=== PATIENT | female | born 1985 | race Caucasian/White ===

== ENCOUNTER 2020-05-21 14:17 | Emergency (ER) | payer OTHER, SELFPAY ==
[2020-05-21] VITALS (10 sets, daily range): BP systolic 113–151; BP diastolic 79–89; PULSE 87–108; RESP 14–24; O2SAT 89–100; BMI 20.2
--- NOTE | 2020-05-21 14:38 | DI.RAD.S_ITS ---
PROCEDURE: XR CHEST 2V INDICATIONS: PALPITATIONS TECHNIQUE: 2 views of the chest were acquired. COMPARISON: None. FINDINGS: Surgical changes and devices: None. Lungs and pleura: Lungs are clear. No pleural effusions or pneumothorax. Mediastinum: Mediastinal contours are normal. Heart size is normal. Bones and chest wall: No suspicious bony abnormalities. Soft tissues appear unremarkable. IMPRESSION: No acute disease. Dictated by: Trevon Loya M.D. on 05/21/2020 at 14:58 Approved by: Trevon Loya M.D. on 05/21/2020 at 14:59
[2020-05-21 14:53] LABS: Add Manual Diff / Slide Review NO; Basophils Absolute Auto 100 /uL (0-100); Basophils Percent Auto 0.7 % (0-2); Eosinophils Absolute Auto 100 /uL (0-450); Eosinophils Percent Auto 1.6 % (2-4); Hemoglobin 13.9 g/dL (12.0-16.0); Lymphocytes Absolute Auto 2100 /uL (1100-4500); Lymphocytes Percent Auto 25.7 % (25-40); Mean Corpuscular HGB Conc 33.1 % (30-36); Mean Corpuscular Hemoglobin 28.6 PG (26-34); Mean Corpuscular Volume 86.5 fL (80-100); Monocytes Absolute Auto 600 /uL (0-900); Monocytes Percent Auto 7.3 % (3-14); Neutrophils Absolute Auto 5400 /uL (1500-7000); Neutrophils Percent Auto 64.7 % (50-75); Platelet Count 264 X10^3/uL (150-400); Red Blood Cell Count 4.85 X10^6/uL (4.0-5.2); Red Cell Distribution Width 12.8 % (11.6-14.8); White Blood Cell Count 8.3 X10^3/uL (4.5-11.0)
[2020-05-21 15:19] LABS: Alanine Aminotransferase 26 IU/L (<35); Albumin 4.5 g/dL (3.5-5.0); Albumin Globulin Ratio 1.6 (1.0-2.8); Alkaline Phosphatase 43 U/L (38-126); Aspartate Aminotransferase 32 IU/L (14-36); BUN Creatinine Ratio 23.8 (6-22); Bilirubin Total 0.4 mg/dL (0.2-1.3); Blood Urea Nitrogen 15 mg/dL (7-17); Calcium 9.7 mg/dL (8.4-10.2); Carbon Dioxide 31 mmol/L (22-32); Chloride 102 mmol/L (98-107); Estimated Glomerular Filt Rate > 60.0 mL/min (>60); Globulin 2.9 g/dL (1.7-4.1); Glucose 83 mg/dL (70-100); HEMOLYSIS < 15 (0-50); Potassium 4.3 mmol/L (3.4-5.1); Sodium 138 mmol/L (137-145); Total Protein 7.4 g/dL (6.3-8.2)
[2020-05-21 15:30] LABS: Troponin I < 0.012 ng/mL (0.01-0.034)
[2020-05-21 15:54] LABS: TSH w/ Reflex to FT4 2.37 uIU/mL (0.47-4.68)
--- NOTE | 2020-05-21 18:37 | ED_ITS ---
HPI - Headache General Chief Complaint: Arrhythmia/Palpitations Stated Complaint: heart rate too fast,neck is going to explode,verti Time Seen by Provider: 05/21/20 18:09 Source: patient and family Mode of arrival: Ambulatory Limitations: no limitations History of Present Illness HPI Narrative: Patient here with . Complains 3 days of constant generalize bilateral retro-orbital headache radiating to the neck bilaterally. Has had nausea. No vomiting. Has had dizziness as well. No syncope. No numbness or tingling. No chest pain. Headache causes her to feel palpitations. Feels pulsating effect on the neck as well as in the ears. Childhood history of POTS but patient states does not feel like this. History of migraines but this is not feel like her typical migraines. Rates headache 7 at 10 is constant. At times worse with laying flat. No light or sound sensitivity. No recent illness fever chills cough cold congestion sore throat. Denies any chest pain back pain or dyspnea MD Complaint: headache Related Data Previous Rx's Medication Instructions Recorded hydrocodone-acetaminophen [[place]] 1 tab PO Q8H PRN #14 tab 05/21/20 ondansetron 4 mg PO Q8H PRN #10 tab 05/21/20 Allergies Allergy/AdvReac Type Severity Reaction Status Date / Time Sulfa (Sulfonamide Allergy Verified 05/21/20 14:29 Antibiotics) Review of Systems Review of Systems Narrative: GENERAL: Denies chills, fatigue, malaise, fever, sweats. HEENT: Denies sinus pain, ear pain, sore throat, difficulty swallowing, dizziness. RESPIRATORY: Denies dyspnea, cough, wheezing, hemoptysis, sputum. CARDIOVASCULAR: Denies chest pain, complains palpitations, denies orthopnea, edema, GASTROINTESTINAL: Complains nausea, denies vomiting, abdominal pain, diarrhea, constipation, melena. : Denies dysuria, frequency, incontinence, hematuria, urinary retention. MUSCULOSKELETAL: denies weakness, joint pain, or bony pain SKIN: Denies rash, skin lesions, or other NEUROLOGIC: Denies weakness, complains headache, denies numbness, change in speech, confusion, seizures, incoordination. PSYCHIATRIC: No concerning psychosocial issues. ROS Unobtainable: All systems reviewed & are unremarkable except as noted in HPI and below Patient History Social History Smoking Status: Former smoker Smoking Status: Former smoker alcohol intake frequency: holidays/special occasions only Substance Use Type: does not use Exam Narrative Exam Narrative: GENERAL: patient appears stated age. Well-nourished, well- developed patient, in no distress, not toxic HEAD: Atraumatic. Normocephalic. EYES: Pupils equal round and reactive. Extraocular motions intact. No scleral i cterus. No injection or drainage. No papilledema no clue sensitivity ENT: Nose without bleeding, purulent drainage. Throat without erythema, tonsillar hypertrophy or exudate. Airway patent. NECK: Trachea midline. Non tender. No expanding mass. No bruit or stridor no meningeal signs CARDIOVASCULAR: Regular rate and rhythm without murmurs, gallops, or rubs. RESPIRATORY: Clear to auscultation. Breath sounds equal bilaterally. No wheezes, rales, or rhonchi. GASTROINTESTINAL: Abdomen soft, non-tender, nondistended. EXTREMITIES: No edema or joint tenderness. BACK: Nontender without deformity or crepitance. No flank tenderness. NEURO: AOx4 clear speech and no facial droop light touch intact to bilateral face hands and legs. Strong equal manager architectural. SKIN: No rash or erythema of visible areas PSYCH: Not anxious, is cooperative Initial Vital Signs Initial Vital Signs: Vital Signs Pulse Rate 97 H 05/21/20 17:12 Blood Pressure 124/81 05/21/20 17:12 Pulse Oximetry 100 05/21/20 17:12 Course Orders Ordered: Discontinued Medications Sodium Chloride (Normal Saline 0.9%) 1,000 mls @ 1,000 mls/hr IV BOLUS ONE Stop: 05/21/20 19:35 Last Infusion: 05/21/20 20:13 Dose: 0 mls/hr Documented by: Admin: 05/21/20 18:56 Dose: 1,000 mls/hr Documented by: DOUG Morphine Sulfate (Morphine) 4 mg IV NOW ONE Stop: 05/21/20 18:37 Last Admin: 05/21/20 18:56 Dose: 4 mg Documented by: DOUG Ondansetron HCl (Zofran) 4 mg IV NOW ONE Stop: 05/21/20 18:37 Last Admin: 05/21/20 18:57 Dose: 4 mg Documented by: DOUG Reevaluation(s) Reevaluation #1: Patient states headache has improved after morphine and Zofran. No nausea. Not toxic. Reviewed laboratory studies and imaging with patient and . They agree for follow-up with primary care at the [facility] and referral to ENT as well as possible Neurology. Heart rate 95. No palpitations Time: 21:13 Vital Signs Vital signs: Vital Signs - 8 hr 05/21/20 21:00 Pulse Rate 88 Pulse Oximetry 100 MDM - Headache Differential Diagnosis Differential diagnosis: Likely migraine, tension headache, subarachnoid hemorrhage and meningitis Lab Data Attestation: I reviewed the patient's lab results. Result diagrams: 05/21/20 14:44 05/21/20 14:44 Labs: Lab Results 05/21/20 05/21/20 05/21/20 Range/Units 14:44 14:44 14:44 WBC 8.3 (4.5-11.0) X10^3/uL RBC 4.85 (4.0-5.2) X10^6/uL Hgb 13.9 (12.0-16.0) g/dL Hct 42.0 (36-46) % MCV 86.5 (80-100) fL MCH 28.6 (26-34) PG MCHC 33.1 (30-36) % RDW 12.8 (11.6-14.8) % Plt Count 264 (150-400) X10^3/uL Neut % (Auto) 64.7 (50-75) % Lymph % (Auto) 25.7 (25-40) % [place] % (Auto) 7.3 (3-14) % Eos % (Auto) 1.6 L (2-4) % Baso % (Auto) 0.7 (0-2) % Neut # (Auto) 5400 (5643-7179) /uL Lymph # (Auto) 2100 (1735-4376) /uL [place] # (Auto) 600 (0-900) /uL Eos # (Auto) 100 (0-450) /uL Baso # (Auto) 100 (0-100) /uL Sodium 138 (137-145) mmol/L Potassium 4.3 (3.4-5.1) mmol/L Chloride 102 (98-107) mmol/L Carbon Dioxide 31 (22-32) mmol/L BUN 15 (7-17) mg/dL Creatinine 0.63 (0.52-1.04) mg/dL Estimated GFR > 60.0 (>60) mL/min BUN/Creatinine Ratio 23.8 H (6-22) Glucose 83 (70-100) mg/dL Calcium 9.7 (8.4-10.2) mg/dL Total Bilirubin 0.4 (0.2-1.3) mg/dL AST 32 (14-36) IU/L ALT 26 (<35) IU/L Alkaline Phosphatase 43 (38-126) U/L Troponin I < 0.012 (0.01-0.034) ng/mL Total Protein 7.4 (6.3-8.2) g/dL Albumin 4.5 (3.5-5.0) g/dL Globulin 2.9 (1.7-4.1) g/dL Albumin/Globulin Ratio 1.6 (1.0-2.8) TSH 2.37 (0.47-4.68) uIU/mL Serum , Qual (Negative) 05/21/20 Range/Units 14:44 WBC (4.5-11.0) X10^3/uL RBC (4.0-5.2) X10^6/uL Hgb (12.0-16.0) g/dL Hct (36-46) % MCV (80-100) fL MCH (26-34) PG MCHC (30-36) % RDW (11.6-14.8) % Plt Count (150-400) X10^3/uL Neut % (Auto) (50-75) % Lymph % (Auto) (25-40) % [place] % (Auto) (3-14) % Eos % (Auto) (2-4) % Baso % (Auto) (0-2) % Neut # (Auto) (4186-9303) /uL Lymph # (Auto) (2330-0298) /uL [place] # (Auto) (0-900) /uL Eos # (Auto) (0-450) /uL Baso # (Auto) (0-100) /uL Sodium (137-145) mmol/L Potassium (3.4-5.1) mmol/L Chloride (98-107) mmol/L Carbon Dioxide (22-32) mmol/L BUN (7-17) mg/dL Creatinine (0.52-1.04) mg/dL Estimated GFR (>60) mL/min BUN/Creatinine Ratio (6-22) Glucose (70-100) mg/dL Calcium (8.4-10.2) mg/dL Total Bilirubin (0.2-1.3) mg/dL AST (14-36) IU/L ALT (<35) IU/L Alkaline Phosphatase (38-126) U/L Troponin I (0.01-0.034) ng/mL Total Protein (6.3-8.2) g/dL Albumin (3.5-5.0) g/dL Globulin (1.7-4.1) g/dL Albumin/Globulin Ratio (1.0-2.8) TSH (0.47-4.68) uIU/mL Serum , Qual Negative (Negative) Imaging Data Chest x-ray: Radiologist's Impression: [address] [address] XRay Report Signed Patient: Dayan Sunshine TALIR#: [id number] : 1985Acct:[id number] Age/Sex: 35 / FDate of Service: 05/21/20 Loc: ED Accession Number: [id number] Procedure: XR chest 2V Ordering Provider: Margaret Ramirez MD PROCEDURE: XR CHEST 2V INDICATIONS: PALPITATIONS TECHNIQUE: 2 views of the chest were acquired. COMPARISON: None. FINDINGS: Surgical changes and devices: None. Lungs and pleura: Lungs are clear. No pleural effusions or pneumothorax. Mediastinum: Mediastinal contours are normal. Heart size is normal. Bones and chest wall: No suspicious bony abnormalities. Soft tissues appear unremarkable. IMPRESSION: No acute disease. Dictated by: Trevon Loya M.D. on 05/21/2020 at 14:58 Approved by: Trevon Loya M.D. on 05/21/2020 at 14:59 CTA - brain/neck: Radiologist's Impression: [address] [address] [address] Scan Report Signed Patient: Dayan Sunshine JMR#: [id number] : 1985Acct:[id number] Age/Sex: 35 / FDate of Service: 05/21/20 Loc: ED Accession Number: [id number] Procedure: CT angio head and neck Ordering Provider: Maurizio Adam MD PROCEDURE: CT ANGIO HEAD AND NECK INDICATIONS: Headache TECHNIQUE: Pre-contrast 4.5 mm thick sections acquired from the foramen magnum to the vertex. After the administration of intravenous contrast, 1 mm thick sections acquired from the aortic arch through the [place] of [place]. Post-contrast 4.5 mm thick sections then re- acquired from the foramen magnum to the vertex. 3-dimensional ypmzfun-qklzlxwgn-jqjyumdh on (MIP) and/or volume rendering reformats were acquired of the central intracranial vasculature and neck separately. COMPARISON: None. FINDINGS: Image quality: Excellent. BRAIN: CSF spaces: Ventricles are normal in size and shape. Basal cisterns are patent. No extra-axial fluid collections. Brain: No midline shift. No acute intracranial hemorrhage or mass effect. [place]-white matter interface appears intact. Skull and face: Calvarium and facial bones appear intact, without suspicious lesions. Orbits appear normal. Sinuses: Sinuses and mastoids are clear. HEAD CT ANGIOGRAPHY: Anterior circulation: Intracranial internal carotid arteries are normal in size and flow. The flow within the paired anterior cerebral arteries is normal and symmetric. The flow within the middle cerebral arteries is normal and symmetric. The anterior communicating artery is seen. No aneurysms are seen. Posterior circulation: Visualized portions of the vertebral arteries dem onstrate normal caliber, and join to form a normal appearing basilar artery. There is a type origin of the right posterior cerebral artery with a hypoplastic P1 segment, a normal variant. The left posterior cerebral artery is patent. No aneurysms are seen. NECK CT ANGIOGRAPHY: Carotid system: The great vessels demonstrate a conventional anatomy as they arise from the aortic arch. The origins of the common carotid arteries appear patent. The common carotid arteries demonstrate normal caliber and courses. The bifurcation regions are both widely patent. The internal carotid arteries demonstrate normal calibers and courses. Posterior circulation: The origins of the vertebral arteries both appear widely patent. The more superior extracranial portions of both vertebral arteries also demonstrate normal courses and calibers. They join to form a normal appearing basilar ar linda. Soft tissues: Visualized neck soft tissues demonstrate no suspicious abnormalities. Bilateral breast implants are partially imaged. Bones: No suspicious bony lesions. Visualized cervical spine appears normally aligned. IMPRESSION: 1. No acute intracranial hemorrhage or mass effect. 2. No intracranial aneurysm is seen. No hemodynamically significant arterial stenosis or occlusion. Any quantitative measurements of stenosis were performed using NASCET criteria. Dictated by: Derek Lackey M.D. on 05/21/2020 at 20:22 Approved by: Derek Lackey M.D. on 05/21/2020 at 20:30 ECG Data Attestation: I personally reviewed and interpreted this ECG as follows: Interpretation: Sinus tachycardia ventricular rate 104. No ST elevation depression MDM Narrative Medical decision making narrative: No lumbar puncture indicated at this time. No fever. No white cell count elevation. No meningeal signs. No clinical findings of meningitis or head bleed. CT a head and neck completed as well as plain head CT. Palpitations are secondary to initiating event is the headache. Discharge Plan Departure Patient Disposition: Home Clinical Impression: Headache Qualifiers: Headache type: unspecified Headache chronicity pattern: acute headache Intractability: not intractable Qualified Code(s): R51 - Headache Discharge Date/Time: 05/21/20 21:26 Instructions: DI for Headache Activity Restrictions/Additional Instructions: No driving tonight. See your family doctor for recheck this week and referral to Neurology as well as ear nose and throat services/Otolaryngology. Return if worse or if any questions or concerns Prescriptions: New hydrocodone-acetaminophen [[place]] 7.5-325 mg tablet 1 tab PO Q8H PRN (Reason: pain) Qty: 14 RF: 0 ondansetron 4 mg tablet,disintegrating 4 mg PO Q8H PRN (Reason: nausea and vomiting) Qty: 10 RF: 0
[2020-05-21] MEDS: MORPHINE 4 MG/ML INJ IV (18:56)
[2020-05-21] MEDS: SODIUM CHLORIDE 0.9% 1,000 ML 1000 ML IV (18:56)
[2020-05-21] MEDS: ONDANSETRON 4 MG/2 ML INJ IV (18:57)
[2020-05-21 19:36] LABS: Pregnancy Test Serum,Qual Negative (Negative)
== END 2020-05-21 21:26 | disposition home or self-care (01) ==
PROVIDERS: Emergency Medicine; Emergency Provider Emergency Medicine
DX: R51 Headache (principal); R00.2 Palpitations; R11.0 Nausea
CPT/HCPCS: 36415; 70496; 70498; 71046; 80053; 84443; 84484; 84703; 85025; 93005; 96361; 96374; 96375; 99284; J2270; J2405; Q9967

== ENCOUNTER 2021-04-10 12:01 | Observation (INO) | payer OTHER, SELFPAY ==
[2021-04-10] VITALS (19 sets, daily range): BP systolic 109–147; BP diastolic 61–83; PULSE 69–92; RESP 14–20; TEMP 36.2–36.8; O2SAT 95–100; BMI 21.7
--- NOTE | 2021-04-10 12:17 | ED_ITS ---
HPI - Skin/Abscess/Foreign Bdy <Laura Miramontes PA-C - Last Filed: 04/10/21 20:32> General Chief complaint: Skin/Abscess/Foreign Body Stated complaint: cat bites from yesterday Time Seen by Provider: 04/10/21 12:17 Source: patient Mode of arrival: Ambulatory Limitations: no limitations History of Present Illness HPI narrative: 36-year-old ceqia-[id number] female PMH mitral valve prolapse, hysterectomy who presents to the ER complaining of increased redness, swelling, and pain to her right hand s/p cat bite yesterday. States that she was bit by a feral cat while at work ([employer]) yesterday that was trapped/vaccinated/neutered same day. She has taken 3 doses of oral Augmentin b ut reports increased redness, swelling, pain in the last 24 hours despite medication and feels the redness is tracking up the volar aspect of her right forearm within the last 6 hours. Reports some joint pain to the right 5th MCP and discomfort with full screed person. Unsure if cat was released or if able to be monitored for rabies - she is checking into this currently. She is not rabies vaccinated. Received updated Tdap yesterday. Denies fever, numbness, tingling. Related Data Home Medications Medication Instructions Recorded Confirmed amoxicillin 875 mg-potassium 1 tab PO BID 04/10/21 04/10/21 clavulanate 125 mg tablet propranolol 10 mg tablet 20 mg PO PRN PRN 04/10/21 04/10/21 venlafaxine 150 mg 150 mg PO QAM 04/10/21 04/10/21 capsule,extended release 24 hr Allergies Allergy/AdvReac Type Severity Reaction Status Date / Time Sulfa (Sulfonamide Allergy Verified 04/10/21 14:45 Antibiotics) Review of Systems <Laura Miramontes PA-C - Last Filed: 04/10/21 20:32> Review of Systems Narrative: General: denies fever, chills Head/Neck: denies headache, neck pain Eyes: denies visual changes, eye pain Cardio: denies chest pain, palpitations Respiratory: denies shortness of breath, cough GI: denies abdominal pain, nausea, vomiting, or diarrhea : denies dysuria, hematuria MSK: denies joint pain, muscle weakness Skin: reports rash, denies itching Neuro: denies LOC, numbness, tingling, loss of sensory/motor function Patient History <Laura Miramontes PA-C - Last Filed: 04/10/21 20:32> Medical History History of use of contraceptive intrauterine device (IUD) Major depressive disorder, recurrent episode with anxious distress PTSD (post-traumatic stress disorder) Surgical History History of breast augmentation History of laparoscopy History of partial hysterectomy History of umbilical hernia repair Family History Grandmother Congestive heart failure Cancer Grandfather Hypertension Cancer Social History household members: spouse Smoking Status: Current every day smoker Smoking Status: Former smoker alcohol intake frequency: holidays/special occasions only Substance Use Type: does not use Exam <Laura Miramontes PA-C - Last Filed: 04/10/21 20:32> Narrative Exam Narrative: Independently reviewed vitals signs and nursing notes. General: Awake, alert, nontoxic, no cardiorespiratory distress Head/Neck: Atraumatic, neck full range of motion Eyes: EOMI, conjunctiva normal Nose: nares patent, no rhinorrhea Cardio: Regular rate and rhythm, no peripheral edema Respiratory: respirations unlabored without wheezing, stridor, or rales. No retractions. GI: Abdomen soft, nondistended MSK: Moves all extremities, neurovascularly intact Skin: Puncture bite daley overlying the palmar and dorsal 5th metacarpal region. Erythema/cellulitis/tenderness to the R hand extending from the 5th MCP along the dorsum and palmar hypothenar aspect of the hand. Mild erythema/tenderness extending proximally on the volar R midline forearm. FROM R hand but discomfort with full hand screed person. Neurovascular intact median/ulnar/radial nerve distributions. No significant pain with axial load of the fingers. Normal capillary refill, no rash Neuro: Normal speech and cognition, normal gait Initial Vital Signs Initial Vital Signs: Vital Signs Temperature 97.1 F L 04/10/21 12:10 Pulse Rate 92 H 04/10/21 12:10 Respiratory Rate 14 04/10/21 12:10 Blood Pressure 132/83 04/10/21 12:10 Pulse Oximetry 99 04/10/21 12:10 <Hu Rogers DO - Last Filed: 04/11/21 07:44> Initial Vital Signs Initial Vital Signs: Vital Signs Temperature 97.1 F L 04/10/21 12:10 Pulse Rate 92 H 04/10/21 12:10 Respiratory Rate 14 04/10/21 12:10 Blood Pressure 132/83 04/10/21 12:10 Pulse Oximetry 99 04/10/21 12:10 Course <Laura Miramontes PA-C - Last Filed: 04/10/21 20:32> Orders Ordered: Acetaminophen (Acetaminophen 325 Mg Tablet) 650 mg PO Q6HR [facility] Last Admin: 04/11/21 05:41 Dose: 650 mg Documented by: Admin: 04/11/21 00:14 Dose: Not Given Documented by: ANA Hydrocodone Bitart/Acetaminophen (Hydrocodone/Acet 5/325 Tablet) 2 tab PO Q4HR PRN PRN Reason: Pain, Severe (7-10) Last Admin: 04/11/21 00:13 Dose: 2 tab Documented by: ANA Al Hydrox/Mg Hydrox/Simethicone (Mag Hydrox/Alum/Simeth 30 Ml Udc) 30 ml PO Q6HR PRN PRN Reason: Dyspepsia Ampicillin Sodium/Sulbactam (Sodium 3 gm/ Sodium Chloride) 100 mls @ 100 mls/hr IV Q6HR [facility] Last Admin: 04/11/21 05:41 Dose: 100 mls/hr Documented by: Infusion: 04/11/21 01:14 Dose: 100 mls/hr Documented by: Admin: 04/11/21 00:14 Dose: 100 mls/hr Documented by: Infusion: 04/10/21 20:11 Dose: 0 mls/hr Documented by: Admin: 04/10/21 18:27 Dose: 100 mls/hr Documented by: JOSÉ LUIS Lactated Ringer's (Lactated Ringers) 1,000 mls @ 100 mls/hr IV CONT [facility] Last Admin: 04/10/21 20:39 Dose: 100 mls/hr Documented by: IAIN Ketorolac Tromethamine (Ketorolac 30 Mg/Ml Vial) 30 mg IV Q6HR PRN PRN Reason: Pain, Severe (7-10) Stop: 04/15/21 20:08 Naloxone HCl (Naloxone 0.4 Mg/Ml Vial) 0.2 mg IV Q2MIN PRN PRN Reason: Opiate Reversal Propranolol HCl (Propranolol 10 Mg Tablet) 20 mg PO QID PRN PRN Reason: Anxiety Venlafaxine HCl (Venlafaxine Er 75 Mg Cap) 150 mg PO DAILY [facility] Discontinued Medications Acetaminophen (Acetaminophen 325 Mg Tablet) 650 mg PO Q6HR PRN PRN Reason: Fever/Mild Pain (1-3) Ampicillin Sodium/Sulbactam (Sodium 1.5 gm/ Sodium Chloride) 100 mls @ 100 mls/hr IV NOW ONE Stop: 04/10/21 12:24 Last Infusion: 04/10/21 14:03 Dose: 0 mls/hr Documented by: JOSÉ LUIS Admin: 04/10/21 13:03 Dose: 100 mls/hr Documented by: JOSÉ LUIS Ketorolac Tromethamine (Ketorolac 30 Mg/Ml Vial) 30 mg IV NOW ONE Stop: 04/10/21 12:24 Last Admin: 04/10/21 13:03 Dose: 30 mg Documented by: JOÉS LUIS Morphine Sulfate (Morphine 2 Mg/Ml Inj) 2 mg IV NOW ONE Stop: 04/10/21 15:05 Last Admin: 04/10/21 15:16 Dose: 2 mg Documented by: JOSÉ LUIS Morphine Sulfate (Morphine 2 Mg/Ml Inj) 2 mg IV NOW ONE Stop: 04/10/21 18:30 Last Admin: 04/10/21 18:39 Dose: 2 mg Documented by: JOSÉ LUIS Morphine Sulfate (Morphine 4 Mg/Ml Inj) 2 mg IV NOW ONE Stop: 04/10/21 18:33 Last Admin: 04/10/21 19:10 Dose: Not Given Documented by: JOSÉ LUIS Morphine Sulfate (Morphine 2 Mg/Ml Inj) 2 mg IV NOW ONE Stop: 04/10/21 19:01 Last Admin: 04/10/21 19:09 Dose: 2 mg Documented by: JOSÉ LUIS Ondansetron HCl (Ondansetron 4 Mg/2 Ml Inj) 4 mg IV NOW ONE Stop: 04/10/21 15:05 Last Admin: 04/10/21 15:16 Dose: 4 mg Documented by: JOSÉ LUIS Ondansetron HCl (Ondansetron 4 Mg/2 Ml Inj) 4 mg IV NOW ONE Stop: 04/10/21 18:30 Last Admin: 04/10/21 18:39 Dose: 4 mg Documented by: JOSÉ LUIS Propranolol HCl (Propranolol 10 Mg Tablet) 20 mg PO BID PRN PRN Reason: anxiety Rabies Immune Globulin (Rabies Immune Globulin 300 Unit/Ml 1ml Vial) 1,100 unit IM NOW ONE Stop: 04/10/21 18:03 Last Admin: 04/10/21 18:36 Dose: 1,100 unit Documented by: JOSÉ LUIS Rabies Vaccine (Rabies Vaccine (Rabavert) 2.5 Units Syringe) 2.5 units IM .ONCE ONE Stop: 04/10/21 18:02 Last Admin: 04/10/21 18:36 Dose: 2.5 units Documented by: JOSÉ LUIS Venlafaxine HCl (Venlafaxine Er 75 Mg Cap) 150 mg PO NOW ONE Stop: 04/10/21 21:10 Last Admin: 04/10/21 21:17 Dose: 150 mg Documented by: IAIN Venlafaxine HCl (Venlafaxine Er 75 Mg Cap) 150 mg PO DAILY [facility] Last Admin: 04/10/21 22:02 Dose: Not Given Documented by: IAIN Consultations Consultation #1: [id number] Consult to Orthopedics, Dr. Ortega, who has been informed the patient evaluation and plan. Agrees with admission. Agrees to see patient in the ED/follow inpatient. No specific recommendations. [address] Ortega, request NPO at midnight. If worsens, may consider surgical intervention. Consultation #2: [id number] Consult to the hospitalist, Dr. Breaux. Admission pending orthopedic ED evaluation. Hospital does not have an available bed at this time. 1745 Consult to the hospitalist, Dr. Breaux. Agrees with evaluation and plan. Agrees to admit patient. Requests Q6 hour IV antibiotics. Vital Signs Vital signs: Vital Signs - 8 hr 04/10/21 13:25 04/10/21 13:30 04/10/21 14:00 Temperature Pulse Rate 89 88 88 Respiratory Rate 17 Blood Pressure 123/61 115/74 Pulse Oximetry 100 100 100 04/10/21 14:30 04/10/21 15:00 04/10/21 15:01 Temperature Pulse Rate 84 92 H 86 Respiratory Rate Blood Pressure 121/66 Pulse Oximetry 100 100 100 04/10/21 15:30 04/10/21 16:00 04/10/21 16:30 Temperature Pulse Rate 80 88 86 Respiratory Rate Blood Pressure 116/74 147/81 H Pulse Oximetry 100 100 100 04/10/21 17:00 04/10/21 17:30 04/10/21 18:00 Temperature Pulse Rate 83 77 75 Respiratory Rate Blood Pressure 119/79 123/68 Pulse Oximetry 100 100 100 04/10/21 18:17 04/10/21 18:30 04/10/21 19:00 Temperature 98.3 F Pulse Rate 69 80 88 Respiratory Rate Blood Pressure 123/68 128/70 Pulse Oximetry 100 100 100 <Hu Rogers DO - Last Filed: 04/11/21 07:44> Orders Ordered: Acetaminophen (Acetaminophen 325 Mg Tablet) 650 mg PO Q6HR [facility] Last Admin: 04/11/21 05:41 Dose: 650 mg Documented by: Admin: 04/11/21 00:14 Dose: Not Given Documented by: ANA Hydrocodone Bitart/Acetaminophen (Hydrocodone/Acet 5/325 Tablet) 2 tab PO Q4HR PRN PRN Reason: Pain, Severe (7-10) Last Admin: 04/11/21 00:13 Dose: 2 tab Documented by: ANA Al Hydrox/Mg Hydrox/Simethicone (Mag Hydrox/Alum/Simeth 30 Ml Udc) 30 ml PO Q6HR PRN PRN Reason: Dyspepsia Ampicillin Sodium/Sulbactam (Sodium 3 gm/ Sodium Chloride) 100 mls @ 100 mls/hr IV Q6HR [facility] Last Admin: 04/11/21 05:41 Dose: 100 mls/hr Documented by: Infusion: 04/11/21 01:14 Dose: 100 mls/hr Documented by: Admin: 04/11/21 00:14 Dose: 100 mls/hr Documented by: Infusion: 04/10/21 20:11 Dose: 0 mls/hr Documented by: Admin: 04/10/21 18:27 Dose: 100 mls/hr Documented by: JOSÉ LUIS Lactated Ringer's (Lactated Ringers) 1,000 mls @ 100 mls/hr IV CONT [facility] Last Admin: 04/10/21 20:39 Dose: 100 mls/hr Documented by: IAIN Ketorolac Tromethamine (Ketorolac 30 Mg/Ml Vial) 30 mg IV Q6HR PRN PRN Reason: Pain, Severe (7-10) Stop: 04/15/21 20:08 Naloxone HCl (Naloxone 0.4 Mg/Ml Vial) 0.2 mg IV Q2MIN PRN PRN Reason: Opiate Reversal Propranolol HCl (Propranolol 10 Mg Tablet) 20 mg PO QID PRN PRN Reason: Anxiety Venlafaxine HCl (Venlafaxine Er 75 Mg Cap) 150 mg PO DAILY NICHO Discontinued Medications Acetaminophen (Acetaminophen 325 Mg Tablet) 650 mg PO Q6HR PRN PRN Reason: Fever/Mild Pain (1-3) Ampicillin Sodium/Sulbactam (Sodium 1.5 gm/ Sodium Chloride) 100 mls @ 100 mls/hr IV NOW ONE Stop: 04/10/21 12:24 Last Infusion: 04/10/21 14:03 Dose: 0 mls/hr Documented by: JOSÉ LUIS Admin: 04/10/21 13:03 Dose: 100 mls/hr Documented by: JOSÉ LUIS Ketorolac Tromethamine (Ketorolac 30 Mg/Ml Vial) 30 mg IV NOW ONE Stop: 04/10/21 12:24 Last Admin: 04/10/21 13:03 Dose: 30 mg Documented by: JOSÉ LUIS Morphine Sulfate (Morphine 2 Mg/Ml Inj) 2 mg IV NOW ONE Stop: 04/10/21 15:05 Last Admin: 04/10/21 15:16 Dose: 2 mg Documented by: JOSÉ LUIS Morphine Sulfate (Morphine 2 Mg/Ml Inj) 2 mg IV NOW ONE Stop: 04/10/21 18:30 Last Admin: 04/10/21 18:39 Dose: 2 mg Documented by: JOSÉ LUIS Morphine Sulfate (Morphine 4 Mg/Ml Inj) 2 mg IV NOW ONE Stop: 04/10/21 18:33 Last Admin: 04/10/21 19:10 Dose: Not Given Documented by: JOSÉ LUIS Morphine Sulfate (Morphine 2 Mg/Ml Inj) 2 mg IV NOW ONE Stop: 04/10/21 19:01 Last Admin: 04/10/21 19:09 Dose: 2 mg Documented by: JOSÉ LUIS Ondansetron HCl (Ondansetron 4 Mg/2 Ml Inj) 4 mg IV NOW ONE Stop: 04/10/21 15:05 Last Admin: 04/10/21 15:16 Dose: 4 mg Documented by: JOSÉ LUIS Ondansetron HCl (Ondansetron 4 Mg/2 Ml Inj) 4 mg IV NOW ONE Stop: 04/10/21 18:30 Last Admin: 04/10/21 18:39 Dose: 4 mg Documented by: JOSÉ LUIS Propranolol HCl (Propranolol 10 Mg Tablet) 20 mg PO BID PRN PRN Reason: anxiety Rabies Immune Globulin (Rabies Immune Globulin 300 Unit/Ml 1ml Vial) 1,100 unit IM NOW ONE Stop: 04/10/21 18:03 Last Admin: 04/10/21 18:36 Dose: 1,100 unit Documented by: JOSÉ LUIS Rabies Vaccine (Rabies Vaccine (Rabavert) 2.5 Units Syringe) 2.5 units IM .ONCE ONE Stop: 04/10/21 18:02 Last Admin: 04/10/21 18:36 Dose: 2.5 units Documented by: JOSÉ LUIS Venlafaxine HCl (Venlafaxine Er 75 Mg Cap) 150 mg PO NOW ONE Stop: 04/10/21 21:10 Last Admin: 04/10/21 21:17 Dose: 150 mg Documented by: IAIN Venlafaxine HCl (Venlafaxine Er 75 Mg Cap) 150 mg PO DAILY [facility] Last Admin: 04/10/21 22:02 Dose: Not Given Documented by: IAIN Vital Signs Vital signs: Vital Signs - 8 hr 04/10/21 13:25 04/10/21 13:30 04/10/21 14:00 Temperature Pulse Rate 89 88 88 Respiratory Rate 17 Blood Pressure 123/61 115/74 Pulse Oximetry 100 100 100 04/10/21 14:30 04/10/21 15:00 04/10/21 15:01 Temperature Pulse Rate 84 92 H 86 Respiratory Rate Blood Pressure 121/66 Pulse Oximetry 100 100 100 04/10/21 15:30 04/10/21 16:00 04/10/21 16:30 Temperature Pulse Rate 80 88 86 Respiratory Rate Blood Pressure 116/74 147/81 H Pulse Oximetry 100 100 100 04/10/21 17:00 04/10/21 17:30 04/10/21 18:00 Temperature Pulse Rate 83 77 75 Respiratory Rate Blood Pressure 119/79 123/68 Pulse Oximetry 100 100 100 04/10/21 18:17 04/10/21 18:30 04/10/21 19:00 Temperature 98.3 F Pulse Rate 69 80 88 Respiratory Rate Blood Pressure 123/68 128/70 Pulse Oximetry 100 100 100 MDM - Skin/Abscess/Foreign Bdy <Laura Miramontes PA-C - Last Filed: 04/10/21 20:32> Lab Data Result diagrams: 04/11/21 06:52 04/11/21 06:52 Labs: Lab Results 04/10/21 04/10/21 04/10/21 Range/Units 12:40 12:40 12:40 WBC 12.4 H (4.5-11.0) X10^3/uL RBC 4.89 (4.0-5.2) X10^6/uL Hgb 14.1 (12.0-16.0) g/dL Hct 43.1 (36-46) % MCV 88.1 (80-100) fL MCH 28.8 (26-34) PG MCHC 32.7 (30-36) % RDW 13.4 (11.6-14.8) % Plt Count 279 (150-400) X10^3/uL Neut % (Auto) 75.4 H (50-75) % Lymph % (Auto) 16.5 L (25-40) % [place] % (Auto) 6.3 (3-14) % Eos % (Auto) 1.2 L (2-4) % Baso % (Auto) 0.6 (0-2) % Neut # (Auto) 9300 H (4245-7464) /uL Lymph # (Auto) 2000 (1319-4284) /uL [place] # (Auto) 800 (0-900) /uL Eos # (Auto) 100 (0-450) /uL Baso # (Auto) 100 (0-100) /uL Sodium 140 (137-145) mmol/L Potassium 3.4 (3.4-5.1) mmol/L Chloride 104 (98-107) mmol/L Carbon Dioxide 27 (22-32) mmol/L BUN 12 (7-17) mg/dL Creatinine 0.49 L (0.52-1.04) mg/dL Estimated GFR > 60.0 (>60) mL/min BUN/Creatinine Ratio 24.5 H (6-22) Glucose 104 H (70-100) mg/dL Calcium 9.6 (8.4-10.2) mg/dL C-Reactive Protein 1.4 H (<1.0) mg/dL SARS-CoV-2 (PCR) (Negative) 04/10/21 Range/Units 12:49 WBC (4.5-11.0) X10^3/uL RBC (4.0-5.2) X10^6/uL Hgb (12.0-16.0) g/dL Hct (36-46) % MCV (80-100) fL MCH (26-34) PG MCHC (30-36) % RDW (11.6-14.8) % Plt Count (150-400) X10^3/uL Neut % (Auto) (50-75) % Lymph % (Auto) (25-40) % [place] % (Auto) (3-14) % Eos % (Auto) (2-4) % Baso % (Auto) (0-2) % Neut # (Auto) (9786-4465) /uL Lymph # (Auto) (7372-9764) /uL [place] # (Auto) (0-900) /uL Eos # (Auto) (0-450) /uL Baso # (Auto) (0-100) /uL Sodium (137-145) mmol/L Potassium (3.4-5.1) mmol/L Chloride (98-107) mmol/L Carbon Dioxide (22-32) mmol/L BUN (7-17) mg/dL Creatinine (0.52-1.04) mg/dL Estimated GFR (>60) mL/min BUN/Creatinine Ratio (6-22) Glucose (70-100) mg/dL Calcium (8.4-10.2) mg/dL C-Reactive Protein (<1.0) mg/dL SARS-CoV-2 (PCR) Negative (Negative) Imaging Data Extremity x-ray #1: My Impression: right hand x-ray independently visualized by me without evidence of fracture, open fracture, or foreign body. Radiologist's Impression: PROCEDURE: XR HAND RT MIN 3V INDICATIONS: cat bite R hand, cellulitis, concern for deep hand infection TECHNIQUE: 3 views of the hand(s) acquired. COMPARISON: None. FINDINGS: Bones: No fractures or dislocations. Carpal bones are normally aligned. No suspicious bony lesions. Soft tissues: No suspicious soft tissue calcifications. IMPRESSION: No acute osseous abnormalities. No radiopaque foreign bodies. Dictated by: Luis F Shetty M.D. on 04/10/2021 at 13:35 Approved by: Luis F Shetty M.D. on 04/10/2021 at 13:52 [facility] Narrative Medical decision making narrative: 36-year-old hyzsj-sbhw-fmfererk female with cat bite to the right hand that occurred yesterday with increased redness, swelling, proximal tracking of erythema along the volar forearm. Initial ddx to include but not limited to cellulitis, deep hand infection, NSTI, or retained foreign body. Vitals WNL, exam with cellultis vs deep hand infection. ED workup to include CBC, CMP, blood cultures x2 without significant findings with initiation of IV antibiotics for failed outpatient oral antibiotic therapy. Received RIG and rabies vaccine. Tdap updated yesterday. Consult to orthopedics, admitted to hospitalist. Continue pain management and IV antibiotics. Patient was informed of lab and imaging results, diagnoses, consulting physicians, and treatment plan. I have spoken with the patient in regard to admission, patient understands and agrees. I have communicated the patient's evaluation and treatment plan to the admitting physician who agrees with admission. All questions answered at this time. <Hu Rogers, DO - Last Filed: 04/11/21 07:44> Lab Data Labs: Lab Results 04/10/21 04/10/21 04/10/21 Range/Units 12:40 12:40 12:40 WBC 12.4 H (4.5-11.0) X10^3/uL RBC 4.89 (4.0-5.2) X10^6/uL Hgb 14.1 (12.0-16.0) g/dL Hct 43.1 (36-46) % MCV 88.1 (80-100) fL MCH 28.8 (26-34) PG MCHC 32.7 (30-36) % RDW 13.4 (11.6-14.8) % Plt Count 279 (150-400) X10^3/uL Neut % (Auto) 75.4 H (50-75) % Lymph % (Auto) 16.5 L (25-40) % [place] % (Auto) 6.3 (3-14) % Eos % (Auto) 1.2 L (2-4) % Baso % (Auto) 0.6 (0-2) % Neut # (Auto) 9300 H (4896-7321) /uL Lymph # (Auto) 2000 (4415-2232) /uL [place] # (Auto) 800 (0-900) /uL Eos # (Auto) 100 (0-450) /uL Baso # (Auto) 100 (0-100) /uL Sodium 140 (137-145) mmol/L Potassium 3.4 (3.4-5.1) mmol/L Chloride 104 (98-107) mmol/L Carbon Dioxide 27 (22-32) mmol/L BUN 12 (7-17) mg/dL Creatinine 0.49 L (0.52-1.04) mg/dL Estimated GFR > 60.0 (>60) mL/min BUN/Creatinine Ratio 24.5 H (6-22) Glucose 104 H (70-100) mg/dL Calcium 9.6 (8.4-10.2) mg/dL C-Reactive Protein 1.4 H (<1.0) mg/dL SARS-CoV-2 (PCR) (Negative) 04/10/21 Range/Units 12:49 WBC (4.5-11.0) X10^3/uL RBC (4.0-5.2) X10^6/uL Hgb (12.0-16.0) g/dL Hct (36-46) % MCV (80-100) fL MCH (26-34) PG MCHC (30-36) % RDW (11.6-14.8) % Plt Count (150-400) X10^3/uL Neut % (Auto) (50-75) % Lymph % (Auto) (25-40) % [place] % (Auto) (3-14) % Eos % (Auto) (2-4) % Baso % (Auto) (0-2) % Neut # (Auto) (4415-9923) /uL Lymph # (Auto) (1211-4651) /uL [place] # (Auto) (0-900) /uL Eos # (Auto) (0-450) /uL Baso # (Auto) (0-100) /uL Sodium (137-145) mmol/L Potassium (3.4-5.1) mmol/L Chloride (98-107) mmol/L Carbon Dioxide (22-32) mmol/L BUN (7-17) mg/dL Creatinine (0.52-1.04) mg/dL Estimated GFR (>60) mL/min BUN/Creatinine Ratio (6-22) Glucose (70-100) mg/dL Calcium (8.4-10.2) mg/dL C-Reactive Protein (<1.0) mg/dL SARS-CoV-2 (PCR) Negative (Negative) Discharge Plan Departure Patient Disposition: Admitted As Inpatient Clinical Impression: Cellulitis of right upper extremity Cat bite of right hand with infection Qualifiers: Encounter type: initial encounter Qualified Code(s): S61.451A - Open bite of right hand, initial encounter Admit Date/Time: 04/10/21 19:09 Admit Provider: John Breaux <Hu Rogers DO - Last Filed: 04/11/21 07:44> Cosign ED Attending Cosignature Attestation: Dr Rogers Co-Sign Statement: I was available for consultation during this patient's emergency department visit. This chart is signed by myself for administrative purposes only. I did not have direct contact with this patient during this visit. They were seen independently by the APC.
[2021-04-10 12:55] LABS: Add Manual Diff / Slide Review NO; Basophils Absolute Auto 100 /uL (0-100); Basophils Percent Auto 0.6 % (0-2); Eosinophils Absolute Auto 100 /uL (0-450); Eosinophils Percent Auto 1.2 % (2-4); Hematocrit 43.1 % (36-46); Hemoglobin 14.1 g/dL (12.0-16.0); Lymphocytes Absolute Auto 2000 /uL (1100-4500); Lymphocytes Percent Auto 16.5 % (25-40); Mean Corpuscular HGB Conc 32.7 % (30-36); Mean Corpuscular Hemoglobin 28.8 PG (26-34); Mean Corpuscular Volume 88.1 fL (80-100); Monocytes Absolute Auto 800 /uL (0-900); Monocytes Percent Auto 6.3 % (3-14); Neutrophils Absolute Auto 9300 /uL (1500-7000); Neutrophils Percent Auto 75.4 % (50-75); Platelet Count 279 X10^3/uL (150-400); Red Blood Cell Count 4.89 X10^6/uL (4.0-5.2); Red Cell Distribution Width 13.4 % (11.6-14.8); White Blood Cell Count 12.4 X10^3/uL (4.5-11.0)
[2021-04-10] MEDS: KETOROLAC 30 MG/ML VIAL IV (13:03)
[2021-04-10] MEDS: AMPICILLIN/SULBACTAM 1.5 GM 1.5 GM in SODIUM CHLORIDE 0.9% 100 ML IV (13:03)
[2021-04-10 13:13] LABS: BUN Creatinine Ratio 24.5 (6-22); Blood Urea Nitrogen 12 mg/dL (7-17); Calcium 9.6 mg/dL (8.4-10.2); Carbon Dioxide 27 mmol/L (22-32); Chloride 104 mmol/L (98-107); Estimated Glomerular Filt Rate > 60.0 mL/min (>60); Glucose 104 mg/dL (70-100); HEMOLYSIS < 15 (0-50); Potassium 3.4 mmol/L (3.4-5.1); Sodium 140 mmol/L (137-145)
[2021-04-10 14:19] LABS: COVID19 - ADMIT (NP swab/PCR) Negative (Negative)
[2021-04-10] MEDS: ONDANSETRON 4 MG/2 ML INJ IV ×2 (15:16→18:39)
[2021-04-10] MEDS: MORPHINE 2 MG/ML INJ IV ×3 (15:16→19:09)
--- NOTE | 2021-04-10 15:27 | PC.NURSE ---
This DIRECTOR OF PLANNING checked with patient if bathroom was needed. Patient has declined
--- NOTE | 2021-04-10 17:49 | P.CONS_ITS ---
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 She was palced on oral abx. She had worsening erythema to the hand since this am. [place] for failure of outpatient abx. Meds Home Medications and Allergies Home Medications Medication Instructions Recorded Confirmed Type amoxicillin 875 mg-potassium 1 tab PO BID 04/10/21 04/10/21 History clavulanate 125 mg tablet propranolol 10 mg tablet 20 mg PO PRN PRN 04/10/21 04/10/21 History venlafaxine 150 mg 150 mg PO QAM 04/10/21 04/10/21 History capsule,extended release 24 hr Allergies Allergy/AdvReac Type Severity Reaction Status Date / Time Sulfa (Sulfonamide Allergy Verified 04/10/21 14:45 Antibiotics) Review of Systems Review of Systems ROS: Yes All systems reviewed with the patient and are negative except as otherwise documented Exam Vital Signs (past 8 hours): - 04/10/21 12:10 04/10/21 13:25 04/10/21 13:30 Temperature 97.1 F L Pulse Rate 92 H 89 88 Respiratory Rate 14 17 Blood Pressure 132/83 123/61 Pulse Oximetry 99 100 100 04/10/21 14:00 04/10/21 14:30 04/10/21 15:00 Temperature Pulse Rate 88 84 92 H Respiratory Rate Blood Pressure 115/74 Pulse Oximetry 100 100 100 04/10/21 15:01 04/10/21 15:30 04/10/21 16:00 Temperature Pulse Rate 86 80 88 Respiratory Rate Blood Pressure 121/66 116/74 Pulse Oximetry 100 100 100 04/10/21 16:30 Temperature Pulse Rate 86 Respiratory Rate Blood Pressure 147/81 H Pulse Oximetry 100 Oxygen Delivery Method Room Air Narrative Exam Narrative: Like erythema to the dorsum and volar aspect of the ulanr hand. No active drainage from cat bite daley (4 punctures). Minimal discomfort with flex/ex of the right small finger MCP. No lymphatic streaking. There is some erythema to the volar aspect of the forearm. NV intact. Objective Labs Result Diagrams: 04/10/21 12:40 04/10/21 12:40 Labs: Laboratory Results - last 24 hr 04/10/21 04/10/21 04/10/21 12:40 12:40 12:49 WBC 12.4 H RBC 4.89 Hgb 14.1 Hct 43.1 MCV 88.1 MCH 28.8 MCHC 32.7 RDW 13.4 Plt Count 279 Neut % (Auto) 75.4 H Lymph % (Auto) 16.5 L [place] % (Auto) 6.3 Eos % (Auto) 1.2 L Baso % (Auto) 0.6 Neut # (Auto) 9300 H Lymph # (Auto) 2000 [place] # (Auto) 800 Eos # (Auto) 100 Baso # (Auto) 100 Sodium 140 Potassium 3.4 Chloride 104 Carbon Dioxide 27 BUN 12 Creatinine 0.49 L Estimated GFR > 60.0 BUN/Creatinine Ratio 24.5 H Glucose 104 H Calcium 9.6 SARS-CoV-2 (PCR) Negative Assessment & Plan Assessment & Plan narrative: Patient is a 36 yo F with a cat bite from a feral cat to the right hand. She has failed outpatient abx therapy. I do not think she needs surgical debridement at this time. I will re-assess her in the am. Admit to medicine for Unasyn IV abx therapy - NPO after midnight - Unasyn abx therapy - Strict elevation - Ice hand
[2021-04-10] MEDS: AMPICILLIN/SULBACTAM 3 GM 3 GM in SODIUM CHLORIDE 0.9% 100 ML IV (18:27)
[2021-04-10] MEDS: RABIES IMMUNE GLOBULIN 300 UNIT/ML 1mL VIAL 1100 UNIT IM (18:36)
[2021-04-10] MEDS: RABIES VACCINE (RABAVERT) 2.5 UNITS SYRINGE IM (18:36)
[2021-04-10] MEDS: LACTATED RINGERS 1,000 ML 100 ML IV (20:39)
[2021-04-10] MEDS: VENLAFAXINE ER 75 MG CAP 150 MG PO (21:17)
--- NOTE | 2021-04-10 21:26 | P.HP_ITS ---
History of Present Illness History of Present Illness Date Patient Seen: 04/10/21 Time Patient Seen: 20:11 Chief complaint: cat bites from yesterday Narrative: Patient is a 36-year-old female Dayan Sunshine who presented to the ED with a chief compliant of increased redness, swelling, and pain to her right hand s/p cat bite yesterday. States that she was bit by a feral cat while at work ([employer]) yesterday that was trapped/vaccinated/neutered same day. She collins s taken 3 doses of oral Augmentin but reports increased redness, swelling, pain in the last 24 hours despite medication and feels the redness is tracking up the volar aspect of her right forearm within the last 6 hours. Reports some joint pain to the right 5th MCP and discomfort with full oracle bpm consultant. Unsure if cat was released or if able to be monitored for rabies - she is checking into this currently. She is not rabies vaccinated. Received updated Tdap yesterday. Denies fever, numbness, tingling.[id number] female with a past medical history of mitral valve prolapse, major depressive disorder with anxiety and PTSD. Upon admit to the floor patient's vitals are stable and within normal limits. Patient is resting in bed in no distress her pain is decreased to approximately 2/10, it is improved from IV antibiotics and pain medication. Patient verbalizes that inflammation has decreased as had the erythema. Patient denies fever, body aches, chills, chest pain, shortness of breath, nausea, vomiting, diarrhea, abdominal pain. Patient has a mildly elevated WBC at 12.4, neutrophils 9300, the only other remarkable finding was a creatinine of 0.49. Patient's last creatinine in the file from 05/21/2020 was 0.63. Right hand x- ray demonstrates no acute osseous abnormalities or foreign body. Dr. Ortega consulted in the ED he advised patient be admitted for observation due to her failure of outpatient oral antibiotic management. Patient to have IV fluids and antibiotics, NPO at midnight and he will re-evaluate in a.m. to determine if she requires surgical intervention. Patient admitted for cat bite and cellulitis of the right hand. Patient History Medical History (Updated 04/10/21 @ 21:36 by CHARLETTE Jones) History of use of contraceptive intrauterine device (IUD) Major depressive disorder, recurrent episode with anxious distress PTSD (post-traumatic stress disorder) Surgical History (Updated 04/10/21 @ 21:36 by BOBBY Jones) History of breast augmentation History of laparoscopy History of partial hysterectomy History of umbilical hernia repair Family & Social History Family History (Updated 04/10/21 @ 21:38 by BOBBY Jones) Grandmother Congestive heart failure Cancer Grandfather Hypertension Cancer Safety & Behavioral: Feels Safe in Current Yes, 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 Environment Been Physically Hurt or No Threatened By a Person Tobacco & Substance use: Smoking Status smokes approximately quarter pack per day, patient frequently stops and starts smoking but feels that she has smoked a total of 5 years alcohol intake frequency holiday/special occasion Substance Use Type does not use Meds Home Medications and Allergies Home Medications Medication Instructions Recorded Confirmed Type amoxicillin 875 mg-potassium 1 tab PO BID 04/10/21 04/10/21 History clavulanate 125 mg tablet propranolol 10 mg tablet 20 mg PO PRN PRN 04/10/21 04/10/21 History venlafaxine 150 mg 150 mg PO QAM 04/10/21 04/10/21 History capsule,extended release 24 hr Allergies Allergy/AdvReac Type Severity Reaction Status Date / Time Sulfa (Sulfonamide Allergy Verified 04/10/21 14:45 Antibiotics) Review of Systems Review of Systems Narrative: All systems reviewed with the patient and are negative with the exception than otherwise documented in Exam Vital Signs (past 8 hours): - 04/10/21 13:30 04/10/21 14:00 04/10/21 14:30 Temperature Pulse Rate 88 88 84 Respiratory Rate Blood Pressure 115/74 Pulse Oximetry 100 100 100 04/10/21 15:00 04/10/21 15:01 04/10/21 15:30 Temperature Pulse Rate 92 H 86 80 Respiratory Rate Blood Pressure 121/66 Pulse Oximetry 100 100 100 04/10/21 16:00 04/10/21 16:30 04/10/21 17:00 Temperature Pulse Rate 88 86 83 Respiratory Rate Blood Pressure 116/74 147/81 H 119/79 Pulse Oximetry 100 100 100 04/10/21 17:30 04/10/21 18:00 04/10/21 18:17 Temperature 98.3 F Pulse Rate 77 75 69 Respiratory Rate Blood Pressure 123/68 123/68 Pulse Oximetry 100 100 100 04/10/21 18:30 04/10/21 19:00 04/10/21 20:30 Temperature 97.7 F Pulse Rate 80 88 87 Respiratory Rate 20 Blood Pressure 128/70 126/72 Pulse Oximetry 100 100 97 Oxygen Delivery Method Room Air Oxygen Flow Rate 0 Narrative Exam Narrative: General: Patient is a well-developed, well-nourished young female in no distress at this time. HEENT: Normocephalic, atraumatic, extraocular muscles intact, oral pharynx is clear and mucous membranes are moist. Neck is supple and symmetric, trachea is midline, no adenopathy, no thyroid enlargement, nontender, no masses palpated. Negative for JVD Chest: Normal AP diameter and contour without kyphoscoliosis, no nasal flaring, retractions, or tachypneic labored Lungs: Auscultation of all lung akins are clear without adventitious sounds, wheezes, rhonchi, or rales. Cardio: S1 & S2 with regular rate and rhythm without murmur, rubs, or gallops, no carotid bruit, no cardiac pulsations present. Abdomen: Soft nontender, negative for organomegaly, or masses. Bowel sounds are present in all 4 quadrants without guarding or rebound, no CVA tenderness. Musculoskeletal: Muscle strength and tone are equal within normal limits, no deformity, crepitus, effusions, cyanosis, clubbing or edema present. Full range of motion intact radial and pedal pulses are normal. Skin: Right ARM/Hand mild erythema to the dorsum and volar aspect of the ulanr hand. No active drainage from cat bite daley (4 punctures). Minimal discomfort with flex/ex of the right small finger MCP. No lymphatic streaking. There is some erythema to the volar aspect of the forearm. normal vascular intact. Neuro: Alert and orientated x3, strength is +5/5 in all extremities, sensation to touch intact, no gross deficits noted of cranial nerves. Psych: Patient has a well-kept appearance, appropriate affect, mental status attitude thought context and judgment are appropriate for age. Objective Labs Result Diagrams: 04/10/21 12:40 04/10/21 12:40 Labs: Laboratory Results - last 24 hr 04/10/21 04/10/21 04/10/21 12:40 12:40 12:49 WBC 12.4 H RBC 4.89 Hgb 14.1 Hct 43.1 MCV 88.1 MCH 28.8 MCHC 32.7 RDW 13.4 Plt Count 279 Neut % (Auto) 75.4 H Lymph % (Auto) 16.5 L [place] % (Auto) 6.3 Eos % (Auto) 1.2 L Baso % (Auto) 0.6 Neut # (Auto) 9300 H Lymph # (Auto) 2000 [place] # (Auto) 800 Eos # (Auto) 100 Baso # (Auto) 100 Sodium 140 Potassium 3.4 Chloride 104 Carbon Dioxide 27 BUN 12 Creatinine 0.49 L Estimated GFR > 60.0 BUN/Creatinine Ratio 24.5 H Glucose 104 H Calcium 9.6 SARS-CoV-2 (PCR) Negative Assessment & Plan Assessment & Plan narrative: 1. Cat bite with cellulitis to the right hand, acute, present on admission --rule out osteomyelitis, gas gangrene necrotizing fasciitis, staph, MRSA- blood cultures pending. -patient admitted for outpatient management failure as evidence by cellulitis with progressive clinical findings and worsening signs/symptoms within 48 hours of oral antibiotics. - WBC 12.4, neutrophils 9300,creatinine of 0.49. (05/21/2020 was 0.63). Right hand x-ray demonstrates no acute osseous abnormalities or foreign body. -ESR and CRP to rule out osteomyelitis -elevate affected leg, lower leg ultrasound on 11/18 and in the ED to 05/16/2021 both a negative for DVT-may consider CT with contrast to rule out abscess or deep infection. -monitor for hyponatremia and elevated CPK or AST -wells criteria score: -2, Sofa score: 0 -patient for observation, vital signs q.8 hours, intake and output monitored Q shift, weight measure daily, diet:May advance to Regular if cleared by Dr. Ortega tomorrow., IV fluids: LR at 100 cc/hour. -extremity to be elevated above the level of the heart at all times -pain management, antiemetics, and IV Unasyn 2 g q.6 hours -patient NPO at midnight-Dr. Ortega will evaluate patient in the a.m. for surgical consideration 2. Major depressive disorder with anxiety in the setting of PTSD, acute on chronic, present on admission -patient denies current depression symptoms, mild anxiety, denies suicidal ideation -continue patient's Propanolol and Effexor 3. Malnourished as evidence by BMI 21.8, acute on chronic, present on admission -will monitor weight, consideration will be given to dietary counseling Code status: Full Surrogate decision maker: Spouse Ishan FERRER PCR: Negative DVT/VTE prophylaxis: Medication held due to possible pending surgical intervention, SCDs only Estimated length of stay: Less than 2 midnights Scores GCS [place] coma scale eye opening: Spontaneous [place] coma scale verbal response: Orientated [place] coma scale motor response: Obey commands [place] coma scale total score: 15 SOFA PaO2/FIO2: >=400 mmHg Platelets: >= 150 Bilirubin: < 1.2 mg/dL Hypotension: MAP >= 70 mmHg [place] Coma Scale: 15 Renal: < 1.2 mg/dL SOFA Score: 0 Wells' Criteria for PE Clinical signs and symptoms of DVT: No PE is #1 Dx or equally likely: No Heart rate > 100: No Immobilization at least 3 days or surg in previous 4 weeks: No History of PE or DVT: No Hemoptysis: No Malignancy w/Treatment within 6 months or palliative: No Wells' PE Score total: 0 Quality MIPS - Admit I confirm the patient?s Advance Care Plan is present, Code status is documented, Surrogate decision maker is in patient?s record [If Yes, STOP here]: Yes
--- NOTE | 2021-04-10 22:57 | PC.NURSE ---
Admit/Evening Shift Note- Patient arrived to room via stretcher from ER 2030. Patient A&O and able to make needs known to staff. Admit questions done, home medications reviewed, physical assessment done, and skin check completed. Patient oriented to bed and bed controls, room, lights, phone, menu, bathroom, and call trejo/tv remote. Safety measures in place. patient independent in room. Patient agrees to call for assistance as needed. Call trejo and phone within reach. will continue to monitor.
[2021-04-11] MEDS: HYDROCODONE/ACET 5/325 TABLET 2 TAB PO ×4 (00:13→19:09)
[2021-04-11] MEDS: AMPICILLIN/SULBACTAM 3 GM 3 GM in SODIUM CHLORIDE 0.9% 100 ML IV ×4 (00:14→18:40)
[2021-04-11 01:58] LABS: C-Reactive Protein Quant 1.4 mg/dL (<1.0)
[2021-04-11 04:03] VITALS: O2SAT 97
[2021-04-11] MEDS: ACETAMINOPHEN 325 MG TABLET 650 MG PO (05:41)
[2021-04-11 05:45] VITALS: BP 111/69; PULSE 81; RESP 14; TEMP 36.6; O2SAT 100
[2021-04-11 07:19] LABS: Add Manual Diff / Slide Review NO; Basophils Absolute Auto 0 /uL (0-100); Basophils Percent Auto 0.4 % (0-2); Eosinophils Absolute Auto 100 /uL (0-450); Eosinophils Percent Auto 1.7 % (2-4); Hematocrit 38.7 % (36-46); Hemoglobin 12.7 g/dL (12.0-16.0); Lymphocytes Absolute Auto 1600 /uL (1100-4500); Lymphocytes Percent Auto 22.4 % (25-40); Mean Corpuscular HGB Conc 32.7 % (30-36); Mean Corpuscular Hemoglobin 28.9 PG (26-34); Mean Corpuscular Volume 88.4 fL (80-100); Monocytes Absolute Auto 600 /uL (0-900); Monocytes Percent Auto 8.6 % (3-14); Neutrophils Absolute Auto 4800 /uL (1500-7000); Neutrophils Percent Auto 66.9 % (50-75); Platelet Count 239 X10^3/uL (150-400); Red Blood Cell Count 4.38 X10^6/uL (4.0-5.2); Red Cell Distribution Width 13.5 % (11.6-14.8); White Blood Cell Count 7.2 X10^3/uL (4.5-11.0)
[2021-04-11 07:27] LABS: INR 1.1 (0.9-1.3); Prothrombin Time 12.2 SECONDS (10.1-12.7)
[2021-04-11 07:32] LABS: Blood Urea Nitrogen 9 mg/dL (7-17); Calcium 8.8 mg/dL (8.4-10.2); Carbon Dioxide 27 mmol/L (22-32); Chloride 108 mmol/L (98-107); Estimated Glomerular Filt Rate > 60.0 mL/min (>60); Glucose 98 mg/dL (70-100); HEMOLYSIS < 15 (0-50); Potassium 4.3 mmol/L (3.4-5.1); Sodium 139 mmol/L (137-145)
--- NOTE | 2021-04-11 07:35 | P.PN_ITS ---
Subjective Subjective Date Patient Seen: 04/11/21 Time Patient Seen: 07:35 Interval history: Patient states she is doing well overall and is in mild discomfort at rest. At this time she rates her pain a 2/10 in intensity but notes that it is gradually increasing. At this time patient denies fever, chills, nausea, chest pain, or shortness of breath. Reports good sensation throughout the bilateral upper extremities. Exam Vital Signs (past 8 hours): - 04/10/21 23:55 04/11/21 04:03 04/11/21 05:45 Temperature 97.8 F 97.8 F Pulse Rate 82 81 Respiratory Rate 14 14 Blood Pressure 109/64 111/69 Pulse Oximetry 95 97 100 Oxygen Delivery Method Room Air Oxygen Flow Rate 0 Narrative Exam Narrative: 32-year-old female suffered a cat bite on 04/09/2021. Patient is resting comfortably in bed, is in no acute distress, and is alert and oriented x3. Skin is warm, dry, and pink. Erythema noted over the dorsal and palmar aspect of the right hand. Swelling appreciated over the lateral aspect of the hand on the dorsal aspect. Three bite daley noted the dorsal aspect of the hand with another bite chad appreciated on the palmar aspect of the right hand in the area of the distal 3rd metacarpal. No active drainage from bite daley appreciated. Const General: cooperative, healthy appearing and comfortable Resp Effort & Inspection: normal respiratory effort and able to speak in complete sentences Objective Labs Result Diagrams: 04/11/21 06:52 04/10/21 12:40 Labs: Laboratory Results - last 24 hr 04/10/21 04/10/21 04/10/21 12:40 12:40 12:40 WBC 12.4 H RBC 4.89 Hgb 14.1 Hct 43.1 MCV 88.1 MCH 28.8 MCHC 32.7 RDW 13.4 Plt Count 279 Neut % (Auto) 75.4 H Lymph % (Auto) 16.5 L [place] % (Auto) 6.3 Eos % (Auto) 1.2 L Baso % (Auto) 0.6 Neut # (Auto) 9300 H Lymph # (Auto) 2000 [place] # (Auto) 800 Eos # (Auto) 100 Baso # (Auto) 100 PT INR Sodium 140 Potassium 3.4 Chloride 104 Carbon Dioxide 27 BUN 12 Creatinine 0.49 L Estimated GFR > 60.0 BUN/Creatinine Ratio 24.5 H Glucose 104 H Calcium 9.6 C-Reactive Protein 1.4 H SARS-CoV-2 (PCR) 04/10/21 04/11/21 04/11/21 12:49 06:52 06:52 WBC 7.2 RBC 4.38 Hgb 12.7 Hct 38.7 MCV 88.4 MCH 28.9 MCHC 32.7 RDW 13.5 Plt Count 239 Neut % (Auto) 66.9 Lymph % (Auto) 22.4 L [place] % (Auto) 8.6 Eos % (Auto) 1.7 L Baso % (Auto) 0.4 Neut # (Auto) 4800 Lymph # (Auto) 1600 [place] # (Auto) 600 Eos # (Auto) 100 Baso # (Auto) 0 PT 12.2 INR 1.1 Sodium Potassium Chloride Carbon Dioxide BUN Creatinine Estimated GFR BUN/Creatinine Ratio Glucose Calcium C-Reactive Protein SARS-CoV-2 (PCR) Negative [facility] Medical History History of use of contraceptive intrauterine device (IUD) Major depressive disorder, recurrent episode with anxious distress PTSD (post-traumatic stress disorder) Surgical History History of breast augmentation History of laparoscopy History of partial hysterectomy History of umbilical hernia repair Family History Grandmother Congestive heart failure Cancer Grandfather Hypertension Cancer Social History household members: spouse Smoking Status: Current every day smoker Assessment & Plan Assessment & Plan narrative: Patient is doing well and is stable. She is to remain NPO and awaiting further evaluation orthopedics. Patient is currently receiving IV Unasyn. Current pain management regimen is to be continued. We will continue to monitor the progress of the patient wounds on the right hand. Quality VTE Deep Vein Thrombosis/Pulmonary Embolism Present on Admission: No
[2021-04-11 07:36] LABS: Erythrocyte Sedimentation Rate 13 MM/HR (0-20)
[2021-04-11] MEDS: VENLAFAXINE ER 75 MG CAP 150 MG PO (09:20)
--- NOTE | 2021-04-11 11:21 | PM.PN.1 ---
Subjective Subjective Date Patient Seen: 04/11/21 Time Patient Seen: 11:21 Interval history: This is a 36-year-old female admitted with worsening cellulitis and streaking of her arm after a cat bite. She is improving with Unasyn but still complains of hand swelling and pain. She was seen by Orthopedic surgery this morning who will see her later again this afternoon to see about possible drainage, but her swelling has improved and her streaking in her arm has essentially resolved On IV Unasyn. Exam Vital Signs (past 8 hours): - 04/11/21 04:03 04/11/21 05:45 Temperature 97.8 F Pulse Rate 81 Respiratory Rate 14 Blood Pressure 111/69 Pulse Oximetry 97 100 Oxygen Delivery Method Room Air Oxygen Flow Rate 0 Narrative Exam Narrative: GENERAL APPEARANCE: Well developed, well nourished, in no acute distress. SKIN: Skin: Right ARM/Hand mild erythema to the dorsum and volar aspect of the ulanr hand. No active drainage from cat bite daley (4 punctures). Minimal discomfort with flex/ex of the right small finger MCP. No lymphatic streaking. There is some erythema to the volar aspect of the forearm. Stable from markings performed in the ER. HEENT: Normocephalic atraumatic, extraocular muscles are intact, oropharynx is clear and mucous membranes are moist, neck is supple without adenopathy NECK: Supple and symmetric. There was no thyroid enlargement, and no tenderness, or masses were felt. CHEST: Normal AP diameter and normal contour without any kyphoscoliosis. LUNGS: Auscultation of the lungs revealed no wheezes, rhonchi, or rales. CARDIOVASCULAR: There was a regular rate and rhythm without any murmurs, gallops, rubs. Peripheral pulses were 2+ and symmetric. ABDOMEN: Soft and nontender with normal bowel sounds. No ascites was noted. MUSCULOSKELETAL: There was no tenderness or effusions noted. Muscle strength and tone were normal. EXTREMITIES: No cyanosis, clubbing or edema. NEUROLOGIC: Alert and oriented x 3. Normal affect. Strength is +5/5 in the Upper Extremities and Lower Extremities Bilaterally. Sensation to touch was normal. Objective Labs Result Diagrams: 04/11/21 06:52 04/11/21 06:52 Labs: Laboratory Results - last 24 hr 04/10/21 04/10/21 04/10/21 12:40 12:40 12:40 WBC 12.4 H RBC 4.89 Hgb 14.1 Hct 43.1 MCV 88.1 MCH 28.8 MCHC 32.7 RDW 13.4 Plt Count 279 Neut % (Auto) 75.4 H Lymph % (Auto) 16.5 L [place] % (Auto) 6.3 Eos % (Auto) 1.2 L Baso % (Auto) 0.6 Neut # (Auto) 9300 H Lymph # (Auto) 2000 [place] # (Auto) 800 Eos # (Auto) 100 Baso # (Auto) 100 ESR PT INR Sodium 140 Potassium 3.4 Chloride 104 Carbon Dioxide 27 BUN 12 Creatinine 0.49 L Estimated GFR > 60.0 BUN/Creatinine Ratio 24.5 H Glucose 104 H Calcium 9.6 C-Reactive Protein 1.4 H SARS-CoV-2 (PCR) 04/10/21 04/11/21 04/11/21 12:49 06:52 06:52 WBC 7.2 RBC 4.38 Hgb 12.7 Hct 38.7 MCV 88.4 MCH 28.9 MCHC 32.7 RDW 13.5 Plt Count 239 Neut % (Auto) 66.9 Lymph % (Auto) 22.4 L [place] % (Auto) 8.6 Eos % (Auto) 1.7 L Baso % (Auto) 0.4 Neut # (Auto) 4800 Lymph # (Auto) 1600 [place] # (Auto) 600 Eos # (Auto) 100 Baso # (Auto) 0 ESR 13 PT INR Sodium Potassium Chloride Carbon Dioxide BUN Creatinine Estimated GFR BUN/Creatinine Ratio Glucose Calcium C-Reactive Protein SARS-CoV-2 (PCR) Negative 04/11/21 04/11/21 06:52 06:52 WBC RBC Hgb Hct MCV MCH MCHC RDW Plt Count Neut % (Auto) Lymph % (Auto) [place] % (Auto) Eos % (Auto) Baso % (Auto) Neut # (Auto) Lymph # (Auto) [place] # (Auto) Eos # (Auto) Baso # (Auto) ESR PT 12.2 INR 1.1 Sodium 139 Potassium 4.3 Chloride 108 H Carbon Dioxide 27 BUN 9 Creatinine 0.50 L Estimated GFR > 60.0 BUN/Creatinine Ratio 18.0 Glucose 98 Calcium 8.8 C-Reactive Protein SARS-CoV-2 (PCR) [facility] Medical History History of use of contraceptive intrauterine device (IUD) Major depressive disorder, recurrent episode with anxious distress PTSD (post-traumatic stress disorder) Surgical History History of breast augmentation History of laparoscopy History of partial hysterectomy History of umbilical hernia repair Family History Grandmother Congestive heart failure Cancer Grandfather Hypertension Cancer Social History household members: spouse Smoking Status: Current every day smoker Assessment & Plan Assessment & Plan narrative: 1. Cat bite with cellulitis to the right hand, acute, present on admission - rule out abscess, appreciate orthopedic surgery consultation. Okay for diet this AM. Ortho to see later in the day. - continue IV unasyn. 2. Major depressive disorder with anxiety in the setting of PTSD, acute on chronic, present on admission -patient denies current depression symptoms, mild anxiety, denies suicidal ideation -continue patient's Propanolol and Effexor 3. Malnourished as evidence by BMI 21.8, acute on chronic, present on admission -will monitor weight, consideration will be given to dietary counseling Code status: Full Surrogate decision maker: Spouse Ishan Sunshine NABIL PCR: Negative DVT/VTE prophylaxis: Medication held due to possible pending surgical intervention, SCDs only Quality VTE Deep Vein Thrombosis/Pulmonary Embolism Present on Admission: No
[2021-04-11 12:00] VITALS: O2SAT 100
[2021-04-11 13:00] VITALS: BP 118/80; PULSE 78; RESP 18; TEMP 36.1; O2SAT 96
--- NOTE | 2021-04-11 15:20 | CM.DANOTE ---
Discharge Planning/Care Management DCP: assessment: case received, discussed in Team Rounds, EMR reviewed and met this afternoon with pt and her Ishan. Pt sis a 36 year old female who admitted last night to care of hospitalist team. Dr. Ortega and ortho team are consulting. Payer: L&I (started at the Urgent Care clinic/[facility] prior to pt's arrival at ) Pt also confirms she has [employer]. PCP: through the [facility]. 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 She is on IV antibiotics and is expected to go for an I&D, perhaps later today. DCP team to follow prn as POC unfolds. Anticipate she will d/c to home setting with her when stable for same. CM Discharge Assessment Start: 04/11/21 15:06 Freq: Status: Active Protocol: Document 04/11/21 15:17 ITV (Rec: 04/11/21 15:19 ITV [id number]) Discharge Planning Assessment Advance Directives? No Advance Directives on File No History Provided By Patient,Medical Record Prior Living Arrangements House Household Members spouse Independent with ADL's Yes Is patient alert and oriented? Yes
[2021-04-11 15:34] VITALS: BP 121/75; PULSE 83; RESP 16; TEMP 36.6; O2SAT 99
--- NOTE | 2021-04-11 16:31 | PC.NURSE ---
Pt awake, alert in bed. Reports pain meds to treat right hand pain effective. States pain is throbbing in nature to right hand when in dependent position. Pillows present in bed for elevation. Ice to right hand. Erythema right hand receding from outlines. Bite daley present on plantar and dorsal aspect with scabbed scratches to right wrist. Edema to right hand. Pt reports full sensation to all five digits right hand. Radial pulse is palpable. Dr. Ortega saw pt @ beginning of shift.
[2021-04-12] MEDS: AMPICILLIN/SULBACTAM 3 GM 3 GM in SODIUM CHLORIDE 0.9% 100 ML IV ×3 (00:27→11:17)
[2021-04-12 00:33] VITALS: BP 115/65; PULSE 77; RESP 12; TEMP 36.7; O2SAT 99
[2021-04-12 04:00] VITALS: O2SAT 97
[2021-04-12] MEDS: ACETAMINOPHEN 325 MG TABLET 650 MG PO (06:21)
--- NOTE | 2021-04-12 07:37 | PM.PN.1 ---
Subjective Subjective Date Patient Seen: 04/12/21 Time Patient Seen: 07:38 Interval history: Patient states she is doing well overall and is in minimal discomfort at rest. At this time she denies fever, chills, nausea, chest pain, or shortness of breath. Patient reports good sensation throughout the bilateral upper extremities. She notes that the swelling and erythema in her right hand has improved significantly since yesterday. Exam Vital Signs (past 8 hours): - 04/12/21 00:33 04/12/21 04:00 Temperature 98.1 F Pulse Rate 77 Respiratory Rate 12 Blood Pressure 115/65 Pulse Oximetry 99 97 Oxygen Delivery Method Room Air Oxygen Flow Rate 0 Narrative Exam Narrative: 36-year-old female suffered a cat bite on her right hand on 04/09/2021. Patient is resting comfortably in bed, is in no acute distress, is alert and oriented x3. Skin is warm, dry, and pink. Slight erythema noted on the dorsal aspect of the hand medially surrounding a bite chad. Two other bite daley on the dorsal aspect of the right hand that are free of erythema, warmth, induration, or discharge. Bite chad on the palmar aspect of the right hand over the 3rd metacarpal is free of erythema, warmth, induration, or discharge. Mild swelling noted on the dorsal aspect of the right hand medially. Good sensation appreciated throughout the bilateral upper extremities. Radial pulses palpated bilaterally and are even. Gross motor function throughout the bilateral upper extremities intact. Const General: cooperative, healthy appearing and comfortable Resp Effort & Inspection: normal respiratory effort and able to speak in complete sentences Objective Labs Result Diagrams: 04/11/21 06:52 04/11/21 06:52 Labs: Laboratory Results - last 24 hr 04/11/21 06:52 ESR 13 [facility] Medical History History of use of contraceptive intrauterine device (IUD) Major depressive disorder, recurrent episode with anxious distress PTSD (post-traumatic stress disorder) Surgical History History of breast augmentation History of laparoscopy History of partial hysterectomy History of umbilical hernia repair Family History Grandmother Congestive heart failure Cancer Grandfather Hypertension Cancer Social History household members: spouse Smoking Status: Current every day smoker Assessment & Plan Assessment & Plan narrative: Patient is doing well and is stable. Patient is to continue IV Unasyn. Current pain management regimen is to be continued as it is adequately controlled the patient's pain level. Patient has swelling and erythema over the right hand appears to be improved significantly since yesterday. Quality VTE Deep Vein Thrombosis/Pulmonary Embolism Present on Admission: No
[2021-04-12 08:00] VITALS: BP 119/71; PULSE 86; RESP 20; TEMP 36.4; O2SAT 99
[2021-04-12] MEDS: VENLAFAXINE ER 75 MG CAP 150 MG PO (08:54)
[2021-04-12 12:00] VITALS: O2SAT 96
--- NOTE | 2021-04-12 12:56 | PC.NURSE ---
Pt A&Ox3, independent in the room ambulating. Per surgical team patient much improved. Swelling to R hand significantly reduced with minimal pain. Pt declined tylenol reports pain 10/06. MD at bedside this a.m. clearing patient for discharge home after noon IV antibiotics. Pt escorted to private vehicle with spouse with all of her belongings via w/ch. Pt verbalizes understanding of discharge instructions, worsening symptoms, medications and follow up instructions.
--- NOTE | 2021-04-12 17:09 | PM.DS.1 ---
History of Present Illness History of Present Illness Chief complaint: cat bites from yesterday Narrative: Per Nica Ayala: Patient is a 36-year-old female Dayan Sunshine who presented to the ED with a chief compliant of increased redness, swelling, and pain to her right hand s/p cat bite yesterday. States that she was bit by a feral cat while at work ([employer]) yesterday that was trapped/vaccinated/neutered same day. She has taken 3 doses of oral Augmentin but reports increased redness, swelling, pain in the last 24 hours despite medication and feels the redness is tracking up the volar aspect of her right forearm within the last 6 hours. Reports some joint pain to the right 5th MCP and discomfort with full slag skimmer. Unsure if cat was released or if able to be monitored for rabies - she is checking into this currently. She is not rabies vaccinated. Received updated Tdap yesterday. Denies fever, numbness, tingling.[id number] female with a past medical history of mitral valve prolapse, major depressive disorder with anxiety and PTSD. Upon admit to the floor patient's vitals are stable and within normal limits. Patient is resting in bed in no distress her pain is decreased to approximately 2/10, it is improved from IV antibiotics and pain medication. Patient verbalizes that inflammation has decreased as had the erythema. Patient denies fever, body aches, chills, chest pain, shortness of breath, nausea, vomiting, diarrhea, abdominal pain. Patient has a mildly elevated WBC at 12.4, neutrophils 9300, the only other remarkable finding was a creatinine of 0.49. Patient's last creatinine in the file from 05/21/2020 was 0.63. Right hand x-ray demonstrates no acute osseous abnormalities or foreign body. Dr. Ortega consulted in the ED he advised patient be admitted for observation due to her failure of outpatient oral antibiotic management. Patient to have IV fluids and antibiotics, NPO at midnight and he will re-evaluate in a.m. to determine if she requires surgical intervention. Patient admitted for cat bite and cellulitis of the right hand. Discharge Providers Provider Date of admission: 04/10/21 19:09 Discharge Date: 04/12/21 Consults: 04/10/21 20:09 Consult to Physician Routine Comment: Consulting Provider: Americo Ortega Reason for consultation: Cat bite cellulitis right hand Has provider been notified: Yes Discharge provider: Angel Corbett MD Summary Hospital Course Discharge Diagnosis: 1. Cat bite with cellulitis 2. Major depressive disorder with anxiety, PTSD Hospital Course: Ms. Sunshine was admitted with worsening cellulitis after a cat bite. She had taken two doses of Augmentin prior to admission. While in the hospital she was treated with Unasyn and improved. Orthopedics was consulted and followed, but she did not need any surgery or debridement. She will be discharged with plan for 1 week more of Augmentin to complete antibiotic course of treatment. Exam Vital Signs (past 8 hours): - 04/12/21 12:00 Pulse Oximetry 96 Oxygen Delivery Method Room Air Oxygen Flow Rate 0 Objective Labs Result Diagrams: 04/11/21 06:52 04/11/21 06:52 [facility] Medical History History of use of contraceptive intrauterine device (IUD) Major depressive disorder, recurrent episode with anxious distress PTSD (post-traumatic stress disorder) Surgical History History of breast augmentation History of laparoscopy History of partial hysterectomy History of umbilical hernia repair Family History Grandmother Congestive heart failure Cancer Grandfather Hypertension Cancer Social History household members: spouse Smoking Status: Current every day smoker Discharge Plan Discharge Plan Patient Disposition: Home Provider Discharge Comment: Ms. Sunshine came in with an infection after a cat bite. She initially was given oral antibiotics, but got worse, was admitted and did well with IV antibiotics. She should continue with 1 more week of oral antibiotics with Augmentin which she has at home, to finish through next Thursday 04/19. Please follow up with your PCP in 1-2 weeks. Discharge orders & Medications Prescriptions: Continued venlafaxine 150 mg Capsule,Extended Release 24hr 150 mg PO QAM RF: 0 propranolol 10 mg tablet 20 mg PO PRN PRN (Reason: Anxiety) RF: 0 amoxicillin-pot clavulanate 875-125 mg tablet 1 tab PO BID RF: 0 Diet/Activity/Treatments Diet: Regular Visit Report/Discharge Packet Instructions: Amoxicillin and Clavulanic Acid Discharge Data Attending Provider: John Breaux VTE Deep Vein Thrombosis/Pulmonary Embolism Present on Admission: No
== END 2021-04-12 12:45 | disposition home or self-care (01) ==
LOC: ED 17:54 → AC 04-11 07:36
PROVIDERS: Nurse Practitioner Family; Admitting Provider Internal Medicine; Emergency Provider Physician Assistant; Referring Provider Physician Assistant; Visit Provider Internal Medicine
DX: L03.113 Cellulitis of right upper limb (principal); W55.01XA Bitten by cat, initial encounter; Y92.89 Other specified places as the place of occurrence of the external cause; Y99.0 Civilian activity done for income or pay; F33.9 Major depressive disorder, recurrent, unspecified; F41.9 Anxiety disorder, unspecified; F43.12 Post-traumatic stress disorder, chronic; E46 Unspecified protein-calorie malnutrition; Z68.21 Body mass index [BMI] 21.0-21.9, adult; Z20.822 Contact with and (suspected) exposure to COVID-19
CPT/HCPCS: 36415; 73130; 80048; 85025; 85610; 85651; 86140; 87040; 87635; 90375; 90471; 90675; 96365; 96366; 96372; 96375; 96376; 99284; C9803; G0378; J0295; J1885; J2270; J2405

== ENCOUNTER → 2021-06-23 08:57 | Outpatient (CLI) | payer OTHER, SELFPAY ==
[2021-04-10 20:31] VITALS: BMI 21.7
--- NOTE | 2021-06-23 | DI.ECHO.S_ITS ---
[facility]---------+ [facility] +---------+ : : [address] : : : : [id number] : : : : Phone: [phone]+ Echocardiogram Report + + :Name: SG ACOSTA Study Date: 06/23/2021 Height: 63 in : :[facility] ReadingLocation: Weight: 118 lb : : Gender: Female BSA: 1.5 m2 : :: 1985 Age: 36 yrs BP: 127/85 mmHg: :Reason For Study: Chest pain : :Ordering Physician: JESSENIA, : :SABRA Shi Performed By: Parker Gutierrez : :Referring: SABRA HORTON : + + Interpretation Summary The ejection fraction is estimated to be 55-60%. Normal diastolic function. The right ventricle is normal in size and function. No significant valvular abnormalities. Unable to estimate PASP. Procedure: A two-dimensional transthoracic echocardiogram with color flow and Doppler was performed. The study quality was technically adequate. There is no prior echocardiogram noted for this patient. Left Ventricle: The left ventricle is normal in size and wall thickness. Left ventricular systolic function is normal. The ejection fraction is estimated to be 55-60%. There are no focal wall motion abnormalities. Diastolic parameters suggest probable normal left ventricular diastolic function and normal filling pressures. Right Ventricle: The right ventricle is normal in size and function. Atria: Both atria are normal in size. There is no Doppler evidence for an interatrial shunt. Mitral Valve: The mitral valve is normal in structure and function. There is no mitral regurgitation noted. Aortic Valve: The aortic valve is normal in structure and function. No aortic regurgitation is present. Tricuspid Valve: The tricuspid valve is normal in structure and function. Pulmonary artery pressures cannot be estimated because of the lack of a measurable TR jet velocity but the IVC suggests a CVP of around 3 mmHg. There is a trace or physiologic amount of tricuspid regurgitation. Pulmonic Valve: The pulmonic valve is normal in structure and function. There is no pulmonic valvular regurgitation. Great Vessels: The aortic root is normal size. The ascending aorta could not be visualized. The IVC is of normal diameter and collapses greater than 50% with a sniff. This suggests a low right atrial pressure of 3 mm Hg. Pericardium/ Pleura There is no pericardial effusion. There is no pleural effusion. MMode/2D Measurements & Calculations LVIDd: 4.0 cm LVOT diam: 1.8 cm LVIDs: 2.8 cm Ao root diam: 2.3 cm FS: 30.0 % IVSd: 0.70 cm LVPWd: 0.70 cm LV yanez. diameter/BSA (cm/m^2): 2.6 LV sys. diameter/BSA (cm/m^2): 1.8 LA dimension: 2.6 cm RA long axis: 3.2 cm LA A4 area: 12.0 cm2 RA area: 10.5 cm2 LA length (vol): 4.7 cm RA vol: 29.3 ml RA : 18.9 ml/m2 TAPSE_phl: 2.6 cm Doppler Measurements & Calculations Ao V2 max: 90.4 cm/sec LVOT Max Adams: 97.3 cm/sec Ao V2 mean: 64.7 cm/sec LV V1 max P.8 mmHg Ao max P.0 mmHg LV V1 VTI: 18.3 cm Ao mean P.0 mmHg ENDER(I,D): 2.7 cm2 Ao V2 VTI: 17.3 cm ENDER(V,D): 2.7 cm2 sev ratio: 1.1 ENDER indexed to BSA (cm^2/m^2): 1.7 MV E max adams: 75.8 cm/sec PA V2 max: 100.0 cm/sec MV A max adams: 65.6 cm/sec PA V2 mean: 72.6 cm/sec MV E/A: 1.2 PA mean P.0 mmHg Med Peak E' Adams: 15.1 cm/sec PA pr(Accel): 27.7 mmHg E/E' med: 5.0 Lat Peak E' Adams: 20.4 cm/sec E/E' lat: 3.7 E/e' average: 4.4 MV dec time: 0.20 sec SV(LVOT): 46.6 ml AV VR_phl: 1.1 ENDER(VTI)/BSA_phl: 1.7 MV P1/2t-pr_phl: 58.0 msec Reading Physician:05:31 PM
--- NOTE | 2021-06-23 | DI.US.S_ITS ---
PROCEDURE: US CAROTID DOPPLER BI INDICATIONS: Neck pulsations TECHNIQUE: Color and pulse Doppler interrogation was performed of both carotid systems, with image documentation and velocity measurements. COMPARISON: [facility], US, US CAROTID DOPPLER BI, 06/23/2021, 9:14. FINDINGS: Stenosis calculations are based on SRU (Society of Radiologists in Ultrasound) criteria. Right side: Brachial blood pressure: 120/82 mm Hg. Common carotid artery peak systolic velocity: 104 cm/sec. Internal carotid artery peak systolic velocity: 88 cm/sec. Internal carotid artery end diastolic velocity: 45 cm/sec. External carotid artery peak systolic velocity: 69 cm/sec. ICA/CCA peak systolic ratio: 0.8 . Hinton scale imaging description: No visualized plaque. Percent internal carotid artery stenosis: No hemodynamically significant stenosis. Vertebral artery: Flow direction is antegrade. Left side: Brachial blood pressure: 119/82 mm Hg. Common carotid artery peak systolic velocity: 124 cm/sec. Internal carotid artery peak systolic velocity: 79 cm/sec. Internal carotid artery end diastolic velocity: 36 cm/sec. External carotid artery peak systolic velocity: 64 cm/sec. ICA/CCA peak systolic ratio: 0.6. Hinton scale imaging description: No visualized plaque. Percent internal carotid artery stenosis: No hemodynamically significant stenosis. Vertebral artery: Flow direction is antegrade. IMPRESSION: No hemodynamically significant stenosis. Dictated by: Liz Fall M.D. on 06/23/2021 at 13:53 Approved by: Liz Fall M.D. on 06/23/2021 at 13:56
== END ==
PROVIDERS: Referring Provider Internal Medicine Cardiovascular Disease; Visit Provider Internal Medicine Cardiovascular Disease
DX: R07.9 Chest pain, unspecified (principal); R68.89 Other general symptoms and signs
CPT/HCPCS: 93306; 93880

== ENCOUNTER → 2022-11-18 12:06 | Outpatient (CLI) | payer OTHER, SELFPAY ==
[2021-04-10 20:31] VITALS: BMI 21.7
--- NOTE | 2022-11-18 | DI.CT.S_ITS ---
PROCEDURE: CT ANGIO CHEST INDICATIONS: ABNORMAL CAROTID PULSE TECHNIQUE: After the administration of intravenous contrast, 2 mm thick sections acquired from the pulmonary apices to the posterior costophrenic angles. 3-dimensional maximum intensity projection (MIP) coronal and sagittal reformats were then acquired through the thorax. For radiation dose reduction, the following was used: automated exposure control, adjustment of mA and/or kV according to patient size. COMPARISON: None. FINDINGS: Image quality: Excellent. Lungs and pleura: No acute air space opacities. No pleural effusions or pneumothorax. Central and peripheral airways are patent and normal in caliber. Mediastinum: Heart size is normal. No pericardial effusion. No mediastinal adenopathy by size criteria. Thoracic aorta and central pulmonary arteries are normal in size. Esophagus is normal in caliber. No hiatal hernia. Bones and chest wall: No suspicious bony lesions. No vertebral body compression fractures. No axillary or supraclavicular adenopathy by size criteria. Thyroid gland is normal. Abdomen: Limited visualization of the upper abdomen shows no acute abnormality. IMPRESSION: 1. Normal aorta with no aneurysm, dissection, or stenosis. 2. Normal branching pattern of the aorta. 3. The proximal carotid and vertebral arteries are patent with a normal caliber. 4. No pulmonary embolism. Dictated by: Cooper Arriaga M.D. on 11/18/2022 at 13:43 Approved by: Cooper Arriaga M.D. on 11/18/2022 at 13:52
== END ==
PROVIDERS: PCP Nurse Practitioner Family; Referring Provider Internal Medicine Cardiovascular Disease; Visit Provider Internal Medicine Cardiovascular Disease
DX: R09.89 Other specified symptoms and signs involving the circulatory and respiratory systems (principal)
CPT/HCPCS: 71275; Q9967

== ENCOUNTER → 2024-02-15 18:43 | Outpatient (CLI) | payer OTHER, SELFPAY ==
[2021-04-10 20:31] VITALS: BMI 21.7
--- NOTE | 2024-02-15 18:45 | DI.MRI.S_ITS ---
PROCEDURE: MR CERVICAL SPINE WO CON INDICATIONS: Chronic Migraine TECHNIQUE: Noncontrast sagittal T1 spin echo and T2 fast spin echo, sagittal STIR, foraminal oblique sagittal T2 fast spin echo, and axial gradient echo or T2 fast spin echo through the cervical spine. COMPARISON: None. FINDINGS: Image quality: Excellent. Alignment and Curvature: There is normal bony alignment. Bone Marrow: Marrow demonstrates normal overall signal. Spinal Cord: Visualized spinal cord has normal size and signal. No cerebellar tonsillar herniation. Paraspinous Soft Tissues: No paravertebral masses. Prevertebral soft tissues are normal in thickness. C2-C3: Minimal disc bulge. No canal stenosis or foraminal stenosis. C3-C4: Mild disc bulge. No canal stenosis or foraminal stenosis. C4-C5: Mild disc bulge. No canal stenosis or foraminal stenosis. C5-C6: Mild disc bulge. No canal stenosis or foraminal stenosis. C6-C7: Mild disc bulge. Mild left facet hypertrophy. No canal stenosis or foraminal stenosis. C7-T1: Normal appearance. IMPRESSION: 1. Multilevel disc bulges. 2. No canal stenosis or foraminal stenosis. Dictated by: Ramirez Arreaga M.D. on 02/16/2024 at 7:53 Approved by: Ramirez Arreaga M.D. on 02/16/2024 at 7:56
--- NOTE | 2024-02-15 18:45 | DI.MRI.S_ITS ---
PROCEDURE: MR HEAD/BRAIN WO CON INDICATIONS: Chronic Migraine TECHNIQUE: Noncontrast axial T1 spin echo, axial T2 fast spin echo, sagittal and axial FLAIR, coronal T2 fast spin echo, axial gradient echo, axial diffusion and ADC through the brain. COMPARISON: [facility], MR, MR BRAIN WITHOUT CONTRAST, 10/01/2020, 16:55. FINDINGS: Image quality: Excellent. CSF Spaces: Basal cisterns are patent. No extra-axial fluid collections. Ventricles are normal in size and shape. Brain: No intracranial masses or hemorrhage. Hinton/white matter interface is normal. Brainstem appears normal. Diffusion-weighted images demonstrate no acute infarct. No chronic ischemic insults. Normal intravascular flow voids are present. Skull and face: Calvarium has normal marrow signal. Orbits appear normal. Sinuses: Sinuses and mastoids are clear. IMPRESSION: No cause for patient's symptoms is identified. No acute intracranial abnormalities. Normal appearance of the brain. Dictated by: Evan Simon M.D. on 02/16/2024 at 11:53 Approved by: Evan Simon M.D. on 02/16/2024 at 11:56
== END ==
PROVIDERS: Referring Provider Student in an Organized Health Care Education/Training Program; Visit Provider Student in an Organized Health Care Education/Training Program
DX: G43.709 Chronic migraine without aura, not intractable, without status migrainosus (principal); M50.31 Other cervical disc degeneration, high cervical region
CPT/HCPCS: 70551; 72141

== ENCOUNTER → 2024-02-29 08:47 | Outpatient (CLI) | payer OTHER, SELFPAY ==
[2021-04-10 20:31] VITALS: BMI 21.7
--- NOTE | 2024-02-29 08:48 | DI.MG.S_ITS ---
BILATERAL DIGITAL DIAGNOSTIC MAMMOGRAM 3D/2D: 02/29/2024 CLINICAL: Baseline exam. Right breast lump and nipple discharge. No prior exams were available for comparison. Both breasts are heterogeneously dense, which may obscure small masses (category c / 51-75% glandular tissue). No significant masses, calcifications, or other findings are seen in either breast. IMPRESSION: INCOMPLETE: NEEDS ADDITIONAL IMAGING EVALUATION There is no abnormality seen in the right breast to correspond with the area of clinical concern and palpable abnormality indicated by triangular marker in the anterior depth in the lower aspect, however, ultrasound is recommended for further evaluation and is scheduled to immediately follow this examination. Based on the Tyrer Cuzick model (a risk assessment model) the patient's lifetime risk is 8.6% and her 10 year risk is 0.9%. According to the ACR, ACS, and NCCN guidelines, an annual breast MRI exam along with mammogram is recommended if the patient's lifetime risk is 20% or greater. This exam was interpreted at Station ID: [id number]. NOTE: For mammograms, a report in lay terms will be sent to the patient. Approximately 15% of breast malignancies will not be visualized mammographically. In the management of a palpable breast mass, a negative mammogram must not discourage biopsy of a clinically suspicious lesion. Electronically Signed By: Theodore Izquierdo M.D. aty/:02/29/2024 09:34:43 ACR BI-RADS Category 0: Incomplete [id number]
--- NOTE | 2024-02-29 08:49 | DI.US.S_ITS ---
LIMITED ULTRASOUND OF RIGHT BREAST: 02/29/2024 CLINICAL: Enlarging palpable right breast lump x 2 yrs (since saline implant removal) + yellow nipple discharge x 2 weeks. Comparison is made to exam dated: 02/29/2024 mammogram - [facility]. Real-time and continuous wave Doppler ultrasound of the right breast 6 o'clock, and retroareolar regions were performed. There are simple cysts in the right breast at 9 o'clock that are incidental findings. No significant abnormalities were seen sonographically in the right breast. IMPRESSION: BENIGN There is no sonographic evidence of malignancy. There is no abnormality seen in the right breast to correspond with the area of clinical concern and palpable abnormality indicated by triangular marker at the 6 o'clock position, however, recommend clinical follow up for persistent or worsening symptoms, or development of any clinically suspicious findings. Recommend initiating routine screening mammograms at age 40. Findings and recommendations were conveyed to the patient during today's evaluation. This exam was interpreted at Station ID: [id number]. Electronically Signed By: Theodore Izquierdo M.D. aty/:02/29/2024 10:02:08 letter sent: Clinical Evaluation Ultrasound BI-RADS: 2 Benign
== END ==
PROVIDERS: Referring Provider Nurse Practitioner Family; Visit Provider Nurse Practitioner Family
DX: R92.2 Inconclusive mammogram (principal); R92.333 Mammographic heterogeneous density, bilateral breasts; N63.41 Unspecified lump in right breast, subareolar; N64.52 Nipple discharge
CPT/HCPCS: 76642; 77066; G0279

== ENCOUNTER 2024-07-23 08:44 | Emergency (ER) | payer OTHER, SELFPAY ==
[2021-04-10 20:31] VITALS: BMI 21.7
[2024-07-23 08:53] VITALS: BP 132/80; PULSE 89; RESP 18; TEMP 36.8; O2SAT 96; BMI 21.2
--- NOTE | 2024-07-23 09:32 | ED.GENADULT ---
HPI - General Adult General Chief complaint: Upper Respiratory Symptoms Stated complaint: cough, poss pneunomia Time Seen by Provider: 07/23/24 09:09 Source: patient Mode of arrival: Ambulatory History of Present Illness HPI narrative: 39-year-old woman with a history of depression comes in with worsening cough. She notes that her son initially had mild upper respiratory infection, 10 days ago she began having mild cough and upper respiratory complaints. Proximally 7 days into that felt that she was getting better and then within 48 hours cough was worsening, fevers were increasing and the cough is now productive. She was diagnosed with asthma and 2011 used an inhaler for a brief period of time but has not needed that is since she is moved to the [facility]. She is concerned that she is wheezing. No vomiting, diarrhea, headaches, palpitations. She notes musculoskeletal chest pain secondary to cough. At this point she is coughing so much that it is hard to complete a sentence. Oxygen saturations are 96% on room air. Related Data Home Medications Medication Instructions Recorded Confirmed amoxicillin 875 mg-potassium 1 tab PO BID 04/10/21 04/10/21 clavulanate 125 mg tablet propranolol 10 mg tablet 20 mg PO PRN PRN Anxiety 04/10/21 04/10/21 venlafaxine 150 mg 150 mg PO QAM 04/10/21 04/10/21 capsule,extended release 24 hr Previous Rx's Medication Instructions Recorded albuterol sulfate 90 mcg/actuation 2 puff inhalation Q6H PRN 07/23/24 aerosol inhaler shortness of breath or wheezing #8.5 grams doxycycline hyclate 100 mg tablet 100 mg PO BID #20 tabs 07/23/24 oxycodone-acetaminophen 5 mg-325 1 tab PO Q6H PRN pain #14 tabs 07/23/24 mg tablet prednisone 20 mg tablet 20 mg PO DAILY #5 tabs 07/23/24 Allergies Allergy/AdvReac Type Severity Reaction Status Date / Time Sulfa (Sulfonamide Allergy Verified 04/10/21 14:45 Antibiotics) Review of Systems Review of Systems Narrative: Pertinent positive and negative findings as per HPI Patient History Medical History History of use of contraceptive intrauterine device (IUD) PTSD (post-traumatic stress disorder) Major depressive disorder, recurrent episode with anxious distress Surgical History History of umbilical hernia repair History of laparoscopy History of partial hysterectomy History of breast augmentation Family History Grandmother Congestive heart failure Cancer Grandfather Hypertension Cancer Social History household members: spouse Smoking Status: Current every day smoker Smoking Status: Current every day smoker alcohol intake frequency: holidays/special occasions only Substance Use Type: does not use Exam Initial Vital Signs Initial Vital Signs: Vital Signs Temperature 98.3 F 07/23/24 08:53 Pulse Rate 89 07/23/24 08:53 Respiratory Rate 18 07/23/24 08:53 Blood Pressure 132/80 07/23/24 08:53 Pulse Oximetry 96 07/23/24 08:53 Oxygen Delivery Method Room Air 07/23/24 08:53 General: Acutely ill but nontoxic appearing. Significant cough slightly productive. Difficulty speaking in full sentences because of the cough HEENT: Moist mucous membranes, normal sclera with reactive pupils, Respiratory: Lungs with moderate rhonchi in the right base and mid axillary line. Scattered wheeze throughout Cardiac: Regular rate and rhythm no murmurs no bruits Abdomen: Soft, nontender, good bowel tones, no flank pain Skin: Warm and dry, no rashes Neurologic: Grossly neurologically intact with no obvious asymmetries or abnormalities Extremities: No trauma, well perfused Psych: Cooperative, appropriate insight and affect Course Orders Ordered: Discontinued Medications Albuterol (Albuterol 2.5 Mg/3 Ml Neb (Adult)) 2.5 mg INH NOW ONE Stop: 07/23/24 09:37 Last Admin: 07/23/24 09:57 Dose: 2.5 mg Documented By: JUAN CARLOS Doxycycline Hyclate (Doxycycline Hyclate 100 Mg Tablet) 100 mg PO NOW ONE Stop: 07/23/24 09:37 Last Admin: 07/23/24 09:59 Dose: 100 mg Documented By: HUSAM Oxycodone/Acetaminophen (Oxycodone/Acetaminophen 5/325 Tablet) 1 tab PO NOW ONE Stop: 07/23/24 09:44 Last Admin: 07/23/24 10:00 Dose: 1 tab Documented By: HUSAM Prednisone (Prednisone 20 Mg Tablet) 60 mg PO NOW ONE Stop: 07/23/24 09:37 Last Admin: 07/23/24 10:00 Dose: 60 mg Documented By: HUSAM Vital Signs Vital signs: Vital Signs - 8 hr 07/23/24 08:53 Temperature 98.3 F Pulse Rate 89 Respiratory Rate 18 Blood Pressure 132/80 Pulse Oximetry 96 Oxygen Delivery Method Room Air Medical Decision Making MDM Narrative Medical decision making narrative: 39-year-old woman with a distant history of asthma. Upper respiratory infection resolving and now worse. Clinical with a right lower lobe pneumonia and acute asthma exacerbation with wheezing and significant cough. Treatment: Albuterol nebulizer, oral doxycycline, oral Percocet to help with musculoskeletal chest wall pain and suppress cough. Discussion: 39-year-old woman with a right lower lobe bacterial pneumonia following a viral upper respiratory infection with acute asthma exacerbation. She is able to eat and drink, oxygen saturations are appropriate. She responded nicely to the albuterol nebulizer in the emergency department. We will place her on doxycycline for 10 days, she is given 5 day course of prednisone, brief course of Percocet to help with musculoskeletal chest wall pain and cough suppression and albuterol inhaler with spacer. Reviewed signs of worsening symptoms that would require return to the hospital and further evaluation for hospitalization. She has not showing signs of sepsis, respiratory failure or indications for additional workup at this time she is safe for discharge Discharge Plan Departure Patient Disposition: Home Clinical Impression: Bacterial pneumonia Asthma exacerbation Qualifiers: Asthma severity: mild Asthma persistence: intermittent Qualified Code(s): J45.21 - Mild intermittent asthma with (acute) exacerbation Instructions: DI for Asthma -- Adult, DI for Pneumonia -- Adult Activity Restrictions/Additional Instructions: Thank you for coming in today Your symptoms seemed to start with a viral syndrome which I suspect you have resolved, the end of the virus bacteria have taken advantage of you and your developing a right lower lobe pneumonia. The virus in the bacteria together causing an exacerbation of your mild asthma I have given you a prescription for doxycycline, an antibiotic to help within Prescription for an albuterol metered-dose inhaler. Please use 2 puffs every 6 hours as needed for wheezing and cough. I have included a spacer, the medicine is far more effective when you do use the spacer Prescription for prednisone, please finish 20 mg daily beginning tomorrow. This will help with the acute asthma flare I have also given you a prescription for Percocet. This is Tylenol plus oxycodone. This is to help with the musculoskeletal pain from coughing but more importantly the narcotic in this will be quite helpful in suppressing the cough. As a cough suppressant as little as a quarter pill will be effective [facility] [place] If you find that you are getting worse or develop any new symptoms, please feel free to return to the emergency department for further evaluation. Prescriptions: New doxycycline hyclate 100 mg tablet 100 mg PO BID Qty: 20 0RF prednisone 20 mg tablet 20 mg PO DAILY Qty: 5 0RF oxycodone-acetaminophen 5-325 mg tablet 1 tab PO Q6H PRN (Reason: pain) Qty: 14 0RF albuterol sulfate 90 mcg/actuation HFA aerosol inhaler 2 puff inhalation Q6H PRN (Reason: shortness of breath or wheezing) Qty: 8.5 0RF Rx Instructions: Please dispense with spacer, review instructions No Action venlafaxine 150 mg Capsule,Extended Release 24hr 150 mg PO QAM propranolol 10 mg tablet 20 mg PO PRN PRN (Reason: Anxiety) Rx Instructions: PRN up to 4 x daily amoxicillin-pot clavulanate 875-125 mg tablet 1 tab PO BID Referrals: ProviderJcarlos [Primary Care Provider] - Stand Alone Forms: Patient Portal/API
[2024-07-23] MEDS: ALBUTEROL 2.5 MG/3 ML NEB (ADULT) INH (09:57)
[2024-07-23] MEDS: DOXYCYCLINE HYCLATE 100 MG TABLET PO (09:59)
[2024-07-23 10:00] VITALS: PULSE 103; RESP 16; O2SAT 95
[2024-07-23] MEDS: predniSONE 20 MG TABLET 60 MG PO (10:00)
[2024-07-23] MEDS: OXYCODONE/ACETAMINOPHEN 5/325 TABLET 1 TAB PO (10:00)
[2024-07-23 10:19] VITALS: BP 130/78; PULSE 98; RESP 18; O2SAT 96
== END 2024-07-23 10:22 | disposition home or self-care (01) ==
PROVIDERS: Emergency Provider Emergency Medicine
DX: J18.9 Pneumonia, unspecified organism (principal); J45.21 Mild intermittent asthma with (acute) exacerbation
CPT/HCPCS: 94640; 99283; J7613

== ENCOUNTER 2024-11-22 11:54 | Emergency (ER) | payer OTHER, SELFPAY ==
[2021-04-10 20:31] VITALS: BMI 21.7
[2024-11-22 11:57] VITALS: BP 160/72; PULSE 102; RESP 20; TEMP 37; O2SAT 99; BMI 21.2
[2024-11-22] MEDS: KETOROLAC 30 MG/ML VIAL 15 MG IV (12:18)
[2024-11-22 12:19] LABS: Add Manual Diff / Slide Review NO; Basophils Absolute Auto 0 /uL (0-100); Basophils Percent Auto 0.7 % (0-2); Eosinophils Absolute Auto 0 /uL (0-450); Eosinophils Percent Auto 1.1 % (2-4); Hematocrit 42.8 % (36-46); Hemoglobin 14.2 g/dL (12.0-16.0); Lymphocytes Absolute Auto 800 /uL (1100-4500); Lymphocytes Percent Auto 17.9 % (25-40); Mean Corpuscular HGB Conc 33.1 % (30-36); Mean Corpuscular Hemoglobin 28.9 PG (26-34); Mean Corpuscular Volume 87.2 fL (80-100); Monocytes Absolute Auto 400 /uL (0-900); Monocytes Percent Auto 10.5 % (3-14); Neutrophils Absolute Auto 3000 /uL (1500-7000); Neutrophils Percent Auto 69.8 % (50-75); Platelet Count 168 X10^3/uL (150-400); Red Cell Distribution Width 13.5 % (11.6-14.8); White Blood Cell Count 4.2 X10^3/uL (4.5-11.0)
--- NOTE | 2024-11-22 12:23 | EKG_ITS ---
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
[2024-11-22 12:31] LABS: Alanine Aminotransferase 75 IU/L (<35); Albumin 4.2 g/dL (3.5-5.0); Albumin Globulin Ratio 1.6 (1.0-2.8); Alkaline Phosphatase 70 U/L (38-126); Aspartate Aminotransferase 55 IU/L (14-36); BUN Creatinine Ratio 14.5 (6-22); Bilirubin Total 0.2 mg/dL (0.2-1.3); Blood Urea Nitrogen 9 mg/dL (7-17); Carbon Dioxide 27 mmol/L (22-32); Chloride 101 mmol/L (98-107); Estimated Glomerular Filt Rate > 60 mL/min (>60); Globulin 2.7 g/dL (1.7-4.1); Glucose 110 mg/dL (70-100); HEMOLYSIS < 15 (0-50); Lipase 70 U/L (23-300); Potassium 3.8 mmol/L (3.4-5.1); Sodium 138 mmol/L (137-145); Total Protein 6.9 g/dL (6.3-8.2)
[2024-11-22 13:19] LABS: Bacteria Urine Few (2-10); Culture Indicated Urine Cult Not Indicated; RBC Urine None Seen (0-5/HPF); Squamous Epithelial Cell Urine 1-5 /HPF (0-5/HPF); Urine Volume 10mL (spun); WBC Urine 1-5/HPF (0-5/HPF)
--- NOTE | 2024-11-22 14:46 | ED_ITS ---
HPI - Abdominal Pain General Chief Complaint: Abdominal Pain Stated Complaint: Per patient, Possible kidney stone, UTI Time Seen by Provider: 11/22/24 14:46 Source: patient Mode of arrival: Ambulatory History of Present Illness HPI narrative: Patient is a healthy 39-year-old female presenting today with left flank pain. She reports that she was diagnosed with influenza B by home test recently got over pneumonia but now has continued left flank pain. While waiting in the ED pain has not moved into her abdomen. She sometimes feels nauseous no vomiting. She was also having painful frequent urination feels like a kidney stone. Related Data Home Medications Medication Instructions Recorded Confirmed amoxicillin 875 mg-potassium 1 tab PO BID 04/10/21 04/10/21 clavulanate 125 mg tablet propranolol 10 mg tablet 20 mg PO PRN PRN Anxiety 04/10/21 04/10/21 venlafaxine 150 mg 150 mg PO QAM 04/10/21 04/10/21 capsule,extended release 24 hr Previous Rx's Medication Instructions Recorded albuterol sulfate 90 mcg/actuation 2 puff inhalation Q6H PRN 07/23/24 aerosol inhaler shortness of breath or wheezing #8.5 grams doxycycline hyclate 100 mg tablet 100 mg PO BID #20 tabs 07/23/24 oxycodone-acetaminophen 5 mg-325 1 tab PO Q6H PRN pain #14 tabs 07/23/24 mg tablet prednisone 20 mg tablet 20 mg PO DAILY #5 tabs 07/23/24 cephalexin 500 mg capsule 500 mg PO BID 5 days #10 caps 11/22/24 hydrocodone 5 mg-acetaminophen 325 1 tab PO Q6H PRN pain #10 tabs 11/22/24 mg tablet Allergies Allergy/AdvReac Type Severity Reaction Status Date / Time Sulfa (Sulfonamide Allergy Verified 04/10/21 14:45 Antibiotics) Patient History Medical History History of use of contraceptive intrauterine device (IUD) PTSD (post-traumatic stress disorder) Major depressive disorder, recurrent episode with anxious distress Surgical History History of umbilical hernia repair History of laparoscopy History of partial hysterectomy History of breast augmentation Family History Grandmother Congestive heart failure Cancer Grandfather Hypertension Cancer Social History household members: spouse Smoking Status: Never smoker Smoking Status: Never smoker alcohol intake frequency: holidays/special occasions only Exam Initial Vital Signs Initial Vital Signs: Vital Signs Temperature 98.6 F 11/22/24 11:57 Pulse Rate 102 H 11/22/24 11:57 Respiratory Rate 20 11/22/24 11:57 Blood Pressure 160/72 H 11/22/24 11:57 Pulse Oximetry 99 11/22/24 11:57 Oxygen Delivery Method Room Air 11/22/24 11:57 GENERAL: Alert 31-year-old female appears to not feel and in no acute distress. HEENT: Head atraumatic,EOMI, pupils reactive, face symmetric, moist mucous membranes CARDIOVASCULAR: Regular rate and rhythm without murmurs, rubs or gallops. RESPIRATORY: Breath sounds equal bilaterally, no wheezes rales or rhonchi. ABDOMEN: Soft, nontender. Normoactive bowel sounds all 4 quadrants. No guarding or rebound. : Left CVA tenderness EXTREMITIES: Normal range of motion, no clubbing or edema. Neurovascularly intact NEUROLOGICAL: Alert and oriented x4.Normal gait and speech. Cranial nerves II through XII grossly intact. SKIN: Warm, dry, no laceration, no petechiae, no rashes or lesions. Course Orders Ordered: ED Orders 11/22/24 12:07 EKG-12 Lead Stat 11/22/24 12:10 Complete Blood Count AUTO DIFF Stat Comprehensive Metabolic Panel Stat Lipase Stat 11/22/24 12:20 Urine Microscopic Stat 11/22/24 14:50 CT abdomen pelvis w con Stat Discontinued Medications Hydromorphone HCl (Hydromorphone 0.5 Mg Inj) 0.5 mg IV NOW ONE Stop: 11/22/24 14:51 Last Admin: 11/22/24 14:59 Dose: 0.5 mg Documented By: JAYLA Ketorolac Tromethamine (Ketorolac 30 Mg/Ml Vial) 15 mg IV NOW ONE Stop: 11/22/24 12:16 Last Admin: 11/22/24 12:18 Dose: 15 mg Documented By: JAYLA Ondansetron HCl (Ondansetron 4 Mg/2 Ml Inj) 4 mg IV NOW PRN PRN Reason: Nausea And Vomiting Ondansetron HCl (Ondansetron 4 Mg Odt) 4 mg PO NOW PRN PRN Reason: Nausea And Vomiting Vital Signs Vital signs: Vital Signs - 8 hr 11/22/24 11:57 11/22/24 15:36 11/22/24 16:00 Temperature 98.6 F 98.5 F Pulse Rate 102 H 101 H Respiratory Rate 20 16 Blood Pressure 160/72 H 127/76 Pulse Oximetry 99 99 Oxygen Delivery Method Room Air MDM - Abdominal Pain Lab Data 11/22/24 12:10 11/22/24 12:10 Labs: Lab Results 11/22/24 11/22/24 Range/Units 12:10 12:20 WBC 4.2 L (4.5-11.0) X10^3/uL RBC 4.90 (4.0-5.2) X10^6/uL Hgb 14.2 (12.0-16.0) g/dL Hct 42.8 (36-46) % MCV 87.2 (80-100) fL MCH 28.9 (26-34) PG MCHC 33.1 (30-36) % RDW 13.5 (11.6-14.8) % Plt Count 168 (150-400) X10^3/uL Neut % (Auto) 69.8 (50-75) % Lymph % (Auto) 17.9 L (25-40) % [place] % (Auto) 10.5 (3-14) % Eos % (Auto) 1.1 L (2-4) % Baso % (Auto) 0.7 (0-2) % Neut # (Auto) 3000 (4407-3201) /uL Lymph # (Auto) 800 L (6794-4711) /uL [place] # (Auto) 400 (0-900) /uL Eos # (Auto) 0 (0-450) /uL Baso # (Auto) 0 (0-100) /uL Sodium 138 (137-145) mmol/L Potassium 3.8 (3.4-5.1) mmol/L Chloride 101 (98-107) mmol/L Carbon Dioxide 27 (22-32) mmol/L BUN 9 (7-17) mg/dL Creatinine 0.62 (0.52-1.04) mg/dL Estimated GFR > 60 (>60) mL/min BUN/Creatinine Ratio 14.5 (6-22) Glucose 110 H (70-100) mg/dL Calcium 9.0 (8.4-10.2) mg/dL Total Bilirubin 0.2 (0.2-1.3) mg/dL AST 55 H (14-36) IU/L ALT 75 H (<35) IU/L Alkaline Phosphatase 70 (38-126) U/L Total Protein 6.9 (6.3-8.2) g/dL Albumin 4.2 (3.5-5.0) g/dL Globulin 2.7 (1.7-4.1) g/dL Albumin/Globulin Ratio 1.6 (1.0-2.8) Lipase 70 (23-300) U/L Urine RBC None seen (0-5/HPF) Urine WBC 1-5/hpf (0-5/HPF) Ur Squamous Epith Cells 1-5 /hpf (0-5/HPF) Urine Bacteria Few (2-10) H (None) Ur Culture Indicated? Cult not indicated Vol Urine Centrifuged 10ml (spun) Point of care testing: Point of Care Testing Test Results Negative Urine Dip Bedside Urine Glucose Negative Bedside Urine Bilirubin - Negative Bedside Urine Ketone - Negative Urine Specific [place] 1.010 Bedside Urine Occult Blood +/- Bedside Urine pH 6.0 Bedside Urine Protein - Negative Bedside Urine Urobilinogen - Negative Bedside Urine Nitrite - Negative Bedside Urine Leukocytes +/- [address] scan - abdomen/pelvis: Radiologist's Impression: PROCEDURE: CT ABDOMEN PELVIS W CON INDICATIONS: left sided flank pain TECHNIQUE: After the administration of intravenous contrast, axial sections acquired from the lung bases to the pubic symphysis. Coronal and sagittal reformats were performed. For radiation dose reduction, the following was used: automated exposure control, adjustment of mA and/or kV according to patient size. COMPARISON: [facility], CT, CT ABDOMEN PELVIS WITH CONTRAST, 03/06/2020, 12:52. FINDINGS: Image quality: Diagnostic. Lower Chest: No significant findings. ABDOMEN: Liver: Focal area of hyperenhancement involving anterior segment of right hepatic lobe measures 1.1 cm in size new since previous study series 2, image 28. Gallbladder: No radiopaque gallstones or wall thickening. Biliary ducts: No biliary dilation. Pancreas: No ductal dilation. Spleen: Size is within normal limits. Adrenal Glands: No adrenal nodules. Kidneys and Ureters: No hydronephrosis. No solid mass. No complex renal cystic lesion which requires follow up. Stomach and Bowel: Moderate fecal stasis in the colon is seen. There is no bowel obstruction or abnormal bowel wall thickening. Appendix is visualized and is within normal limits. No abscess collection. Peritoneum: No abnormal intraperitoneal fluid. No free air. Ventral Wall: No significant ventral hernia. Abdominal Nodes: No retroperitoneal or mesenteric adenopathy by size criteria. Vessels: Aorta and inferior vena cava are normal in size. PELVIS: Pelvic Organs: Unremarkable. Bladder: No bladder wall thickening, accounting for underdistention. Pelvic Nodes: No enlarged lymph nodes. Miscellaneous: No inguinal hernias are seen. Bones: No aggressive osseous abnormality. IMPRESSION: 1. No obstructing renal stones or hydronephrosis. 2. No bowel obstruction or abnormal bowel wall thickening. Moderate constipation. No free fluid or free air. 3. Incidentally noted of 1.1 cm area of hyperenhancement involving anterior segment of right hepatic lobe not seen on previous study and is of indeterminate nature. Consider outpatient ultrasound follow-up or MRI of abdomen without and with contrast for further evaluation. Dictated by: Leeroy Monae M.D. on 11/22/2024 at 15:51 Approved by: Leeroy Monae M.D. on 11/22/2024 at 15:57 ECG Data Attestation: I personally reviewed and interpreted this ECG as follows: Interpretation: Normal sinus rhythm rate 91 MA interval 160 QRS [address] changes MDM Narrative Medical decision making narrative: Patient healthy 39-year-old female presenting today with left flank pain. Diagnosed with influenza B and a home test a couple days ago recently got over pneumonia no having continued left flank pain Blood work has been reviewed WBC 4.2 hemoglobin 14.2 hematocrit 42.8 CMP electrolytes stable no PERRY Urinalysis positive for bacteria, squamous cells 1-5, negative for nitrates and leukocyte CT does not show any evidence of nephrolithiasis bowel obstruction or abnormality. There is a 1.1 cm incidental finding in the liver Patient is still having quite a bit of pain on the left side but real cause. Not convinced she has UTI or pyelo possible. It also may just be exacerbation of pain secondary to influenza B infection. She certainly has no evidence of sepsis. Discharge Plan Departure Patient Disposition: Home Clinical Impression: Pyelonephritis, Influenza B Activity Restrictions/Additional Instructions: *You have been diagnosed with influenza B possible kidney infection *What to do: At this time please stay hydrated. Your CT did not show any evidence of kidney stone. Your urinalysis show evidence of infection. However due to the amount of pain that you are in will treat you for possible kidney infection however your pain might just be due to influenza B *Continue to take medications as directed Motrin 600 mg every 6 hours for [id number] pain--okay to take with normal [place] 1 tablet every 6 hours only if needed for severe--this has Tylenol in it, do not combine with Tylenol Tylenol 500 mg every 4-6 hours if needed Keflex 500 mg twice a day for 5 days *Follow up with your primary care provider in 2-3 days or call [phone] *Return to ER if you should have inability to tolerate fluids increasing pain or any new, worsening or concerning symptoms CONTROLLED SUBSTANCE DISCHARGE (Narcotoic/benzodiazepine/Flexeril/Phenergan) 1. You have been prescribed narcotic medications, it does have acetaminophen/Tylenol/paracetamol in it, DO NOT TAKE MORE THAN 4,00mg in 24 hours of Tylenol. TRAMADOL DOES NOT CONTAIN TYLENOL 2. Please understand that we cannot provide further refills of narcotics, benzodiazepines or controlled substances through the ED and her pain management will need to be through your provider. 3. While on these medications you cannot drive or operate heavy machinery. 4. You cannot sign legal documents or perform any duties such as this. 5. As long as you're taking opiate pain medications he should also be taking a stool softener such as Colace, Dulcolax, MiraLAX or prune juice, to help avoid constipation. Prescriptions: New hydrocodone-acetaminophen 5-325 mg tablet 1 tab PO Q6H PRN (Reason: pain) Qty: 10 0RF cephalexin 500 mg capsule 500 mg PO BID 5 Days Qty: 10 0RF No Action venlafaxine 150 mg Capsule,Extended Release 24hr 150 mg PO QAM propranolol 10 mg tablet 20 mg PO PRN PRN (Reason: Anxiety) Rx Instructions: PRN up to 4 x daily amoxicillin-pot clavulanate 875-125 mg tablet 1 tab PO BID doxycycline hyclate 100 mg tablet 100 mg PO BID Qty: 20 0RF prednisone 20 mg tablet 20 mg PO DAILY Qty: 5 0RF oxycodone-acetaminophen 5-325 mg tablet 1 tab PO Q6H PRN (Reason: pain) Qty: 14 0RF albuterol sulfate 90 mcg/actuation HFA aerosol inhaler 2 puff inhalation Q6H PRN (Reason: shortness of breath or wheezing) Qty: 8.5 0RF Rx Instructions: Please dispense with spacer, review instructions Referrals: ProviderJcarlos [Primary Care Provider] - Stand Alone Forms: Patient Portal/API/Survey
--- NOTE | 2024-11-22 14:50 | DI.CT.S_ITS ---
PROCEDURE: CT ABDOMEN PELVIS W CON INDICATIONS: left sided flank pain TECHNIQUE: After the administration of intravenous contrast, axial sections acquired from the lung bases to the pubic symphysis. Coronal and sagittal reformats were performed. For radiation dose reduction, the following was used: automated exposure control, adjustment of mA and/or kV according to patient size. COMPARISON: [facility], CT, CT ABDOMEN PELVIS WITH CONTRAST, 03/06/2020, 12:52. FINDINGS: Image quality: Diagnostic. Lower Chest: No significant findings. ABDOMEN: Liver: Focal area of hyperenhancement involving anterior segment of right hepatic lobe measures 1.1 cm in size new since previous study series 2, image 28. Gallbladder: No radiopaque gallstones or wall thickening. Biliary ducts: No biliary dilation. Pancreas: No ductal dilation. Spleen: Size is within normal limits. Adrenal Glands: No adrenal nodules. Kidneys and Ureters: No hydronephrosis. No solid mass. No complex renal cystic lesion which requires follow up. Stomach and Bowel: Moderate fecal stasis in the colon is seen. There is no bowel obstruction or abnormal bowel wall thickening. Appendix is visualized and is within normal limits. No abscess collection. Peritoneum: No abnormal intraperitoneal fluid. No free air. Ventral Wall: No significant ventral hernia. Abdominal Nodes: No retroperitoneal or mesenteric adenopathy by size criteria. Vessels: Aorta and inferior vena cava are normal in size. PELVIS: Pelvic Organs: Unremarkable. Bladder: No bladder wall thickening, accounting for underdistention. Pelvic Nodes: No enlarged lymph nodes. Miscellaneous: No inguinal hernias are seen. Bones: No aggressive osseous abnormality. IMPRESSION: 1. No obstructing renal stones or hydronephrosis. 2. No bowel obstruction or abnormal bowel wall thickening. Moderate constipation. No free fluid or free air. 3. Incidentally noted of 1.1 cm area of hyperenhancement involving anterior segment of right hepatic lobe not seen on previous study and is of indeterminate nature. Consider outpatient ultrasound follow-up or MRI of abdomen without and with contrast for further evaluation. Dictated by: Leeroy Monae M.D. on 11/22/2024 at 15:51 Approved by: Leeroy Monae M.D. on 11/22/2024 at 15:57
[2024-11-22] MEDS: HYDROMORPHONE 0.5 MG INJ IV (14:59)
[2024-11-22 15:36] VITALS: BP 127/76; PULSE 101; RESP 16; O2SAT 99
[2024-11-22 16:00] VITALS: TEMP 36.9
== END 2024-11-22 16:36 | disposition home or self-care (01) ==
PROVIDERS: Emergency Provider Emergency Medicine
DX: N12 Tubulo-interstitial nephritis, not specified as acute or chronic (principal); J10.1 Influenza due to other identified influenza virus with other respiratory manifestations
CPT/HCPCS: 36415; 74177; 80053; 81003; 81015; 81025; 83690; 85025; 93005; 96374; 96375; 99284; J1171; J1885; Q9967

== ENCOUNTER → 2024-12-18 10:41 | Outpatient (CLI) | payer OTHER, SELFPAY ==
[2021-04-10 20:31] VITALS: BMI 21.7
--- NOTE | 2024-12-18 10:42 | DI.MRI.S_ITS ---
PROCEDURE: MR ABDOMEN LIVER PROTOCOL INDICATIONS: HEPATIC LESION TECHNIQUE: Coronal HASTE, axial 2D FLASH in- and [id number]; axial breath-hold T2 FSE. Dynamic axial VIBE during the administration of contrast; post-contrast coronal VIBE or 2D FLASH with fat saturation from the hepatic dome to the iliac crests. Optional diffusion weighted imaging and ADC may be performed. COMPARISON: [facility], CT, CT ABDOMEN PELVIS W CON, 11/22/2024, 15:00. [facility], CT, CT ABDOMEN PELVIS WITH CONTRAST, 03/06/2020, 12:52. FINDINGS: Image quality: Diagnostic Lower chest: Unremarkable lung bases Liver: Non cirrhotic liver contour. Segment 8 liver lesions with hypervascularity on arterial phase and hepatobiliary phase contrast retention measuring 1.4 and 1.2 cm (labeled on series 27). There is minimal to mild associated T2 signal. Another tiny cyst is seen in segment 7. Gallbladder and biliary system: Unremarkable, nondilated Pancreas: No ductal dilation Spleen: Nonenlarged Adrenals: No discrete nodules Kidneys: No hydronephrosis or solid renal mass Vessels and lymph nodes: No enlarged lymph nodes identified by size criteria. No abdominal aortic aneurysm. Main portal vein appears patent Bowel and peritoneum: No small bowel obstruction. Moderate fecal loading. No drainable ascites Body wall: Unremarkable Bones: No aggressive appearing osseous abnormality. IMPRESSION: Assuming patient does not have another malignancy history or known background liver disease, the segment 8 hypervascular liver lesions are compatible with benign focal nodular hyperplasia. Dictated by: Sancho Mann M.D. on 12/18/2024 at 12:17 Approved by: Sancho Mann M.D. on 12/18/2024 at 12:26
== END ==
PROVIDERS: Referring Provider Nurse Practitioner Family; Visit Provider Nurse Practitioner Family
DX: K76.89 Other specified diseases of liver (principal)
CPT/HCPCS: 74183; A9579

== ENCOUNTER → 2024-12-25 | Outpatient (CLI) | payer OTHER, SELFPAY ==
[2021-04-10 20:31] VITALS: BMI 21.7
--- NOTE | 2024-12-25 09:11 | DI.RAD.S_ITS ---
PROCEDURE: FL BARIUM SWALLOW INDICATIONS: ABNORMAL SWALLOWING SENSATION COMPARISON: None. FINDINGS: Function: There is normal esophageal peristalsis. No elicited gastroesophageal reflux. There is delayed transit of a calibrated barium tablet through the gastroesophageal junction into the stomach. Morphology: Air-contrast images demonstrate normal mucosal morphology. Single contrast views show no esophageal strictures, extrinsic mass effects, or diverticula. Limited images of the stomach demonstrate normal appearance. IMPRESSION: Mild delay of calibrated barium tablet at the gastroesophageal junction. No mass identified. Dictated by: Liz Fall M.D. on 12/26/2024 at 10:28 Approved by: Liz Fall M.D. on 12/26/2024 at 10:29
== END ==
PROVIDERS: Referring Provider Nurse Practitioner Family; Visit Provider Nurse Practitioner Family
DX: F45.8 Other somatoform disorders (principal)
CPT/HCPCS: 74220

== ENCOUNTER 2025-03-04 18:14 | Emergency (ER) | payer OTHER, SELFPAY ==
[2021-04-10 20:31] VITALS: BMI 21.7
[2025-03-04] VITALS (7 sets, daily range): BP systolic 127–128; BP diastolic 80–85; PULSE 90–98; RESP 12–21; TEMP 36.6; O2SAT 98–100; BMI 23.3
--- NOTE | 2025-03-04 18:51 | PC.NURSE ---
During triage and rewrapping of her fingers patient patient leaned to the side and closed her eyes and was momentarily unresponsive but answered verbally when I called her name within 15 seconds. This RN informed Dr. Mccormack.
[2025-03-04] MEDS: ACETAMINOPHEN 325 MG TABLET 975 MG PO (18:58)
--- NOTE | 2025-03-04 19:26 | DI.RAD.S_ITS ---
PROCEDURE: XR HAND LT MIN 3V INDICATIONS: cut hand, eval for fx TECHNIQUE: Three views of the hand(s) acquired. COMPARISON: [facility], CR, XR HAND RT MIN 3V, 04/10/2021, 12:21. FINDINGS: Bones: No fractures or dislocations. Carpal bones are normally aligned. No suspicious bony lesions. Soft tissues: Possible small soft tissue defect at the tip of the 4th distal phalanx. No radiodense foreign bodies. IMPRESSION: No fracture or foreign body underlying soft tissue defect at the 4th distal phalanx. Dictated by: Aileen Mckeon M.D. on 03/04/2025 at 20:33 Approved by: Aileen Mckeon M.D. on 03/04/2025 at 20:34
--- NOTE | 2025-03-04 20:39 | ED.UPPEXIN ---
HPI - Extremity Injury (Upper) General Chief Complaint: Extremity Injury, Upper Stated Complaint: injury left hand cut with saw Time Seen by Provider: 03/04/25 19:26 Source: patient Mode of arrival: Wheelchair History of Present Illness HPI narrative: 40-year-old female was cutting a piece of wood with saw, would/blade complex kicked back, she sustained laceration cutting off the tip of her 4th ring finger, bleeding, has pain. History of Pott's disease, she briefly passed out, seems very covered. No other injuries recalled. Last tetanus shot 2021. Related Data Home Medications ?Medication ?Instructions ?Recorded ?Confirmed amoxicillin 875 mg-potassium 1 tab PO BID 04/10/21 04/10/21 clavulanate 125 mg tablet propranolol 10 mg tablet 20 mg PO PRN PRN Anxiety 04/10/21 04/10/21 venlafaxine 150 mg 150 mg PO QAM 04/10/21 04/10/21 capsule,extended release 24 hr Previous Rx's ?Medication ?Instructions ?Recorded albuterol sulfate 90 mcg/actuation 2 puff inhalation Q6H PRN 07/23/24 aerosol inhaler shortness of breath or wheezing #8.5 grams doxycycline hyclate 100 mg tablet 100 mg PO BID #20 tabs 07/23/24 oxycodone-acetaminophen 5 mg-325 1 tab PO Q6H PRN pain #14 tabs 07/23/24 mg tablet prednisone 20 mg tablet 20 mg PO DAILY #5 tabs 07/23/24 hydrocodone 5 mg-acetaminophen 325 1 tab PO Q6H PRN pain #10 tabs 11/22/24 mg tablet cephalexin 500 mg capsule 500 mg PO QID 5 days #20 caps 03/04/25 Allergies Allergy/AdvReac Type Severity Reaction Status Date / Time Sulfa (Sulfonamide Allergy Verified 03/04/25 18:32 Antibiotics) Patient History Medical History History of use of contraceptive intrauterine device (IUD) PTSD (post-traumatic stress disorder) Major depressive disorder, recurrent episode with anxious distress Surgical History History of umbilical hernia repair History of laparoscopy History of partial hysterectomy History of breast augmentation Family History Grandmother Congestive heart failure Cancer Grandfather Hypertension Cancer Social History household members: spouse Smoking Status: Former smoker Smoking Status: Former smoker alcohol intake frequency: holidays/special occasions only Exam Narrative Exam Narrative: GENERAL: Well-developed patient, in mild distress. HEAD: Atraumatic. Normocephalic. EYES: Pupils equal round and reactive. Extraocular motions intact. No scleral icterus. No injection or drainage. ENT: Nose without bleeding, purulent drainage. Throat without erythema, tonsillar hypertrophy or exudate. Airway patent. NECK: Trachea midline. Non tender CARDIOVASCULAR: Regular rate and rhythm without murmurs, gallops, or rubs. RESPIRATORY: Clear to auscultation. Breath sounds equal bilaterally. No wheezes, rales, or rhonchi. GASTROINTESTINAL: Abdomen soft, non-tender, nondistended. EXTREMITIES: Left 4th finger tip avulsion laceration, nonsuturable, no visible bone. Intact nail, without subungual hematoma. Other fingers atraumatic. No obvious injuries to the rest of the hand or wrist or forearm. BACK: Nontender without deformity or crepitance. No flank tenderness. NEURO: AOx3. Motor functions grossly nonfocal. SKIN: No rash or erythema of visible areas. Multiple visible tattoos, none obviously infected. Initial Vital Signs Initial Vital Signs: Vital Signs Temperature 97.9 F 03/04/25 18:32 Pulse Rate 98 H 03/04/25 18:32 Respiratory Rate 20 03/04/25 18:32 Blood Pressure 128/80 03/04/25 18:32 Pulse Oximetry 98 03/04/25 18:32 Oxygen Delivery Method Room Air 03/04/25 18:32 Course Orders Ordered: ED Orders 03/04/25 19:26 XR hand LT min 3V Stat Discontinued Medications Acetaminophen (Acetaminophen 325 Mg Tablet) 975 mg PO NOW ONE Stop: 03/04/25 18:45 Last Admin: 03/04/25 18:58 Dose: 975 mg Documented By: RB Hydrocodone Bitart/Acetaminophen (Hydrocodone/Acet 5/325 Prepack) 1 bottle MISC DIRECTED ONE Stop: 03/04/25 21:17 Last Admin: 03/04/25 21:25 Dose: 1 bottle Documented By: VALERIA Bacitracin (Bacitracin Oint 0.9 Gm Pckt) 1 applic TOP NOW ONE Stop: 03/04/25 21:10 Last Admin: 03/04/25 21:24 Dose: 1 applic Documented By: VALERIA Bacitracin (Bacitracin Oint 0.9 Gm Pckt) 1 applic TOP NOW ONE Stop: 03/04/25 21:19 Cephalexin HCl (Cephalexin 250 Mg Capsule) 500 mg PO NOW ONE Stop: 03/04/25 21:00 Last Admin: 03/04/25 21:25 Dose: 500 mg Documented By: VALERIA Vital Signs Vital signs: Vital Signs - 8 hr 03/04/25 19:25 03/04/25 19:30 03/04/25 19:30 Pulse Rate 93 H 90 Respiratory Rate 12 21 Blood Pressure 127/85 Pulse Oximetry 100 100 Oxygen Delivery Method 03/04/25 20:00 03/04/25 20:30 03/04/25 21:30 Pulse Rate 93 H 94 H 95 H Respiratory Rate 17 19 20 Blood Pressure Pulse Oximetry 98 99 99 Oxygen Delivery Method 03/04/25 21:53 Pulse Rate 92 H Respiratory Rate 20 Blood Pressure 127/85 Pulse Oximetry 99 Oxygen Delivery Method Room Air MDM - Extremity Injury (Upper) Imaging Data Extremity x-ray #1: Radiologist's Impression: [place] [address] XRay Report Signed Patient: Dayan Sunshine MR#: [id number] : 1985 Acct:[id number] Age/Sex: 40 / F Date of Service: 03/04/25 Loc: ED Accession Number: [id number] Procedure: XR hand LT min 3V Ordering Provider: Jcarlos Mccormack MD PROCEDURE: XR HAND LT MIN 3V INDICATIONS: cut hand, eval for fx TECHNIQUE: Three views of the hand(s) acquired. [facility], 04/10/2021, 12:21. FINDINGS: Bones: No fractures or dislocations. Carpal bones are normally aligned. No suspicious bony lesions. Soft tissues: Possible small soft tissue defect at the tip of the 4th distal phalanx. No radiodense foreign bodies. IMPRESSION: No fracture or foreign body underlying soft tissue defect at the 4th distal phalanx. Dictated by: Aileen Mckeon M.D. on 03/04/2025 at 20:33 Approved by: Aileen Mckeon M.D. on 03/04/2025 at 20:34 [facility] Narrative Medical decision making narrative: 40-year-old female laceration fingertip right 4th finger from saw/piece of wood, screening x-ray negative for fracture and foreign body. No gross deformity. Nonsuturable superficial 1 cm area surface, no visible bone at the end, no subungual hematoma. History of Pott's disease, syncopized apparently with wound dressing and after injury, recovered. Digital block for cleaning tolerated well, 1% lidocaine without epinephrine, total of 3 cc to the base of the left 4th ring finger. Nursing then was able to irrigate, placed antibiotic ointment, place Xeroform cover, place bulky finger dressing. Patient advised to elevate the left upper extremity. Oral cephalexin antibiotic prophylaxis, wound is in proximity to the distal phalanx bone although not visible, no radiographic fracture. Prescription sent for few days more of cephalexin to her pharmacy. Home pack hydrocodone. Tetanus up-to-date. Wound check advised with the regular doctor in 2 days. Discharged home with friends. Return precautions discussed. Discharge Plan Departure Patient Disposition: Home Clinical Impression: Finger laceration Activity Restrictions/Additional Instructions: Left ring finger tip laceration from saw/would kicked back, removal of fingertip skin on examination, no visible bone. No subungual hematoma (no bleeding underneath the nailbed). X-ray without obvious fracture. No foreign bodies were seen on x-ray, although wood pieces/splinters not likely visible on plain films. Digital block performed, for better wound cleaning, with placement of antibiotic ointment and nonstick Xeroform and finger gauze wrap. Keep finger elevated to reduce bleeding. Proximity of tissue to the fingertip bone, no visible bone, no visible bone fracture, but possible increased risk of infection. Oral cephalexin antibiotic given, prescription sent to your pharmacy to take for the next few days prophylaxis. Wound check advised with your regular doctor in 2 days. Contact information also provided for local orthopedic surgeon if you want to follow up with Orthopedic surgeon in the next couple of days, contact office tomorrow during regular open hours for close follow up appointment. Return earlier to this/nearest emergency department for any change worsening symptoms or any concerns prior. Contact information also provided for local orthopedic surgeon clinic, if he would like to follow up with them in the next couple of days, call their office tomorrow Wednesday morning for close follow up that day or early in the week. Prescriptions: New cephalexin 500 mg capsule 500 mg PO QID 5 Days Qty: 20 0RF No Action venlafaxine 150 mg Capsule,Extended Release 24hr 150 mg PO QAM propranolol 10 mg tablet 20 mg PO PRN PRN (Reason: Anxiety) Rx Instructions: PRN up to 4 x daily amoxicillin-pot clavulanate 875-125 mg tablet 1 tab PO BID doxycycline hyclate 100 mg tablet 100 mg PO BID Qty: 20 0RF prednisone 20 mg tablet 20 mg PO DAILY Qty: 5 0RF oxycodone-acetaminophen 5-325 mg tablet 1 tab PO Q6H PRN (Reason: pain) Qty: 14 0RF albuterol sulfate 90 mcg/actuation HFA aerosol inhaler 2 puff inhalation Q6H PRN (Reason: shortness of breath or wheezing) Qty: 8.5 0RF Rx Instructions: Please dispense with spacer, review instructions hydrocodone-acetaminophen 5-325 mg tablet 1 tab PO Q6H PRN (Reason: pain) Qty: 10 0RF Referrals: Provider,Jcarlos MICHAELS [Primary Care Provider, Family Practice] Zane Funez MD [Physician, Orthopedic Surgery] Stand Alone Forms: Patient Portal/API
[2025-03-04] MEDS: BACITRACIN OINT 0.9 GM PCKT 1 APPLIC TOP (21:24)
[2025-03-04] MEDS: HYDROCODONE/ACET 5/325 PREPACK 1 BOTTLE MISC (21:25)
[2025-03-04] MEDS: cephALEXin 250 MG CAPSULE 500 MG PO (21:25)
== END 2025-03-04 21:59 | disposition home or self-care (01) ==
PROVIDERS: Emergency Provider Emergency Medicine
DX: S61.215A Laceration without foreign body of left ring finger without damage to nail, initial encounter (principal); W27.0XXA Contact with workbench tool, initial encounter
CPT/HCPCS: 73130; 99283